=== PATIENT | female | born 1930 | race Caucasian/White ===

== ENCOUNTER 2017-05-11 20:10 | Inpatient (IN) | payer MEDICARE, OTHER ==
[~2017-05-11] VITALS: Ht 157.5 cm; Wt 58.7 kg
[2017-05-11] VITALS (9 sets, daily range): BP systolic 147–185; BP diastolic 67–85; PULSE 77–88; RESP 16; TEMP 97.9; O2SAT 94–100
[2017-05-11] MEDS ORDERED: IOHEXOL 350 MG/ML 10 ML VIAL (for RAD DIAG) IVCONTRAST ONE (20:11)
[2017-05-11] MEDS ORDERED: MISCELLANEOUS NURSING INFORMATION XX PRN (20:30)
[2017-05-11] MEDS ORDERED: ALTEPLASE DRIP IV ONE (20:30)
[2017-05-11] MEDS ORDERED: ALTEPLASE BOLUS 9 MG/9 ML SYR IV ONE (20:30)
[2017-05-11] MEDS ORDERED: SODIUM CHLORIDE 0.9% 50 ML BAG IVF ONE (20:30)
--- NOTE | 2017-05-11 20:37 | RADRPT ---
EXAM DATE/TIME: 05/11/2017 20:15 [facility] COMPARISON: No previous studies available for comparison. INDICATIONS : Altered mental status RADIATION DOSE: 56.68 CTDIvol (mGy) This report was called by [place] to dr. Mo at 2032 MEDICAL HISTORY : Non-responsive. SURGICAL HISTORY : Non-responsive. ENCOUNTER: Initial ACUITY: 1 day PAIN SCALE: Non-responsive LOCATION: cranial TECHNIQUE: Multiple contiguous axial images were obtained of the head. Using automated exposure control and adj ustment of the mA and/or kV according to patient size, radiation dose was kept as low as reasonably a chievable to obtain optimal diagnostic quality images. DICOM format image data is available electro nically for review and comparison. FINDINGS: CEREBRUM: A small focal hyperdensity is identified along the cortical surface of the left occipital lobe. Certa inly measures are otherwise unremarkable. There are no hypodense changes characteristic of an acute i nfarct. CSF spaces are appropriate appearance for age POSTERIOR FOSSA: The cerebellum and brainstem are intact. The 4th ventricle is midline. The cerebellopontine angle i s unremarkable. EXTRACRANIAL: The visualized portion of the orbits is intact. SKULL: The calvaria is intact. No evidence of skull fracture. CONCLUSION: 1. Possible small cortical hemorrhage along the left occipital lobe 2. No other evidence of acute infarct or hemorrhage. Adiel Chandler MD on May 11, 2017 at 20:29 Board Certified Radiologist. This report was verified electronically.
[2017-05-11 20:43] LABS: AUTOMATED NEUTROPHIL # 3.4 TH/MM3 (1.8-7.7); BASOPHIL % 0.5 % (0.0-2.0); EOSINOPHIL # 0.1 TH/MM3 (0-0.4); EOSINOPHIL % 1.6 % (0.0-4.0); HEMATOCRIT 39.9 % (35.0-46.0); HEMOGLOBIN 13.2 GM/DL (11.6-15.3); LYMPHOCYTE # 1.3 TH/MM3 (1.0-4.8); MEAN CELL VOLUME 95.5 FL (80.0-100.0); MEAN CORPUSCULAR HEMOGLOBIN 31.5 PG (27.0-34.0); MEAN PLATELET VOLUME 10.6 FL (7.0-11.0); MONO % 7.4 % (0.0-8.0); MONOCYTE # 0.4 TH/MM3 (0-0.9); NEUT % 65.5 % (16.0-70.0); PLATELET COUNT 203 TH/MM3 (150-450); RED BLOOD COUNT 4.18 MIL/MM3 (4.00-5.30); RED CELL DISTRIBUTION WIDTH 11.7 % (11.6-17.2); WHITE BLOOD COUNT 5.2 TH/MM3 (4.0-11.0)
[2017-05-11 20:51] LABS: CALCIUM 8.9 MG/DL (8.5-10.1)
[2017-05-11 20:52] LABS: BICARBONATE 27.5 MEQ/L (21.0-32.0)
[2017-05-11 20:54] LABS: PROTHROMBIN TIME - PATIENT 10.4 SEC (9.8-11.6)
[2017-05-11 20:55] LABS: CREATININE 1.1 MG/DL (0.50-1.00)
[2017-05-11 21:00] LABS: TROPONIN I 0.06 NG/ML (0.02-0.05)
[2017-05-11 21:21] LABS: BILIRUBIN, URINE NEG (NEG); BLOOD, URINE NEG (NEG); GLUCOSE,URINE NEG (NEG); KETONE, URINE NEG (NEG); NITRITE,URINE NEG (NEG); PH, URINE 5.5 (5.0-8.5); URINE LEUKOCYTE ESTERASE NEG (NEG)
[2017-05-11 21:22] LABS: URINE COLOR YELLOW (YELLW/STRAW)
[2017-05-11 21:24] LABS: RBC, URINE 0-2 /hpf (0-3); SQUAMOUS EPITHELIAL CELL URINE 0-5 /hpf (0-5); WBC, URINE 0-2 /hpf (0-5)
[2017-05-11] MEDS ORDERED: ASPIRIN 300 MG SUPP RECTAL ONE (21:45)
--- NOTE | 2017-05-11 21:48 | RADRPT ---
EXAM DATE/TIME: 05/11/2017 21:01 [facility] COMPARISON: No previous studies available for comparison. INDICATIONS : Stroke symptoms IV CONTRAST: 86 cc Omnipaque 350 (iohexol) IV ; Cumulative dose for multiple exams. RADIATION DOSE: CTDIvol (mGy) ; Reconstructed from previous dataset, no dose MEDICAL HISTORY : Non-responsive. SURGICAL HISTORY : Non-responsive. ENCOUNTER: Initial ACUITY: 1 day PAIN SCALE: Non-responsive LOCATION: cranial TECHNIQUE: Volumetric scanning was performed using a multi-row detector CT scanner. The data was post processed with a variety of visualization algorithms including full volume maximum intensity projection, multi -planar sliding thin slab reformation, curved planar reformation, and surface rendering techniques. Using automated exposure control and adjustment of the mA and/or kV according to patient size, radiat ion dose was kept as low as reasonably achievable to obtain optimal diagnostic quality images. DICO M format image data is available electronically for review and comparison. FINDINGS: There is excellent visualization of the major intracranial arteries out to the second-order branch ve ssels. The left internal carotid artery is occluded. The proximal left middle cerebral artery is occluded. Several M2 and M3 branches of the left reconstituted via collateral flow. Right cerebral circulation and vertebral basilar circulation are patent. CONCLUSION: 1. Occluded left internal carotid artery and proximal left middle cervical artery 2. 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 3. Intact right cerebral and vertebral basilar circulation. Adiel Chandler MD on May 11, 2017 at 21:39 Board Certified Radiologist. This report was verified electronically.
--- NOTE | 2017-05-11 22:16 | RADRPT ---
EXAM DATE/TIME: 05/11/2017 21:01 [facility] COMPARISON: No previous studies available for comparison. INDICATIONS : Stroke symptoms IV CONTRAST: 86 cc Omnipaque 350 (iohexol) IV ; Cumulative dose for multiple exams. RADIATION DOSE: 43.12 CTDIvol (mGy) ; Combined studies MEDICAL HISTORY : Non-responsive. SURGICAL HISTORY : Non-responsive. ENCOUNTER: Initial ACUITY: 1 day PAIN SCALE: Non-responsive LOCATION: cranial Elevated flow velocities and ICA/CCA ratios have been found to correlate with increased degrees of vessel stenosis, calculated as percentage of diameter relative to a normal segment of distal ICA/CCA. TECHNIQUE: Volumetric scanning was performed using a multirow detector CT scanner. The data was post processed with a variety of visualization algorithms including full-volume maximum intensity projection, multip lanar sliding thin-slab reformation, curved-planar reformation, and surface-rendering techniques. Us ing automated exposure control and adjustment of the mA and/or kV according to patient size, radiatio n dose was kept as low as reasonably achievable to obtain optimal diagnostic quality images. DICOM f ormat image data is available electronically for review and comparison. FINDINGS: AORTIC ARCH: There is a three-vessel origin of the great vessels from the aorta. No evidence of ostial narrowing. RIGHT CAROTID: The common carotid artery is intact. The carotid bulb has a normal configuration without ulceration o r narrowing. The internal carotid artery lumen is smooth without stenosis. The external carotid tiffanie ry is intact. LEFT CAROTID: The left common carotid artery becomes occluded just at its origin. There is complete occlusion of th e left internal carotid artery which extends intracranially. VERTEBRALS: The vertebral arteries have a symmetric diameter. No stenotic lesions are seen. CONCLUSION: 1. Occluded left common and internal carotid arteries. 2. Patent right carotid system without significant stenosis. 3. Patent vertebral arteries. Adiel Chandler MD on May 11, 2017 at 22:11 Board Certified Radiologist. This report was verified electronically.
--- NOTE | 2017-05-11 22:54 | PD ---
HPI Chief Complaint: Stroke Alert Time Seen by Provider: 20:16 Travel History International Travel<30 days: No Contact w/Intl Traveler<30days: No Traveled to known affect area: No History of Present Illness HPI This is an 86-year-old female who presents to the emergency department having been eating dinner with her family at 7:30 PM when she slumped over on the table and had onset of right sided weakness and difficulty speaking. The family immediately called EMS. With EMS the patient had a normal blood sugar. Patient is unable to provide any history. PFS Past Medical History Medical History: Denies Significant Hx Tetanus Vaccination: Unknown ?: Not Past Surgical History Surgical History: Unable to Obtain Social History Alcohol Use: No Tobacco Use: No Substance Use: No Allergies-Medications (Allergen,Severity, Reaction): Coded Allergies: No Known Drug Allergies (Verified Allergy, Unknown, 05/11/17) Reported Meds & Prescriptions Reported Meds & Active Scripts Active No Active Prescriptions or Reported Medications Review of Systems ROS Limitations: Speech Impaired Physical Exam Narrative GENERAL: Frail elderly female, protecting her airway SKIN: Focused skin assessment warm and dry. HEAD: Atraumatic. Normocephalic. EYES: Pupils equal and round. No injection or drainage. ENT: Moist mucous membranes NECK: Trachea midline. CARDIOVASCULAR: Regular rate and rhythm. No murmur appreciated. RESPIRATORY: Clear to auscultation. Breath sounds equal bilaterally. GASTROINTESTINAL: Abdomen soft, non-tender, nondistended. MUSCULOSKELETAL: No obvious deformities. NEUROLOGICAL: Does not follow commands, right sided facial droop, right upper and right lower extremity weakness on exam, completely aphasic. Data Data Last Documented VS Vital Signs Date Time Temp Pulse Resp B/P (MAP) Pulse Ox O2 Delivery O2 Flow Rate FiO2 05/11/17 20:43 94 21 05/11/17 20:15 16 Nasal Cannula 2.00 05/11/17 20:10 97.9 88 165/72 (103) Orders Orders Cath For Specimen (05/11/17 20:16) Neuro Checks Q2HX12,Q4H (05/11/17 20:16) Nursing Bedside Swallow Assess .ONCE (05/11/17 20:16) Activity Bed Rest (05/11/17 20:16) Diet Npo (05/12/17 Breakfast) Prothrombin Time / Inr (Pt) (05/11/17 20:16) Act Partial Throm Time (Ptt) (05/11/17 20:16) Complete Blood Count With Diff (05/11/17 20:16) Basic Metabolic Panel (Bmp) (05/11/17 20:16) Fibrinogen (05/11/17 20:16) Creatine Kinase (Cpk) (05/11/17 20:16) Troponin I (05/11/17 20:16) Ua Includes Microscopic (05/11/17 20:16) Drug Screen, Random Urine (05/11/17 20:16) Type And Screen (05/11/17 20:16) Ct Brain W/O Iv Contrast(Rout) (05/11/17 ) Electrocardiogram (05/11/17 ) Beta Hcg (Quant/Titer) (05/11/17 20:16) Consult Neurology (05/11/17 20:16) Blood Glucose (05/11/17 20:16) Ecg Monitoring (05/11/17 20:16) Iv Access Insert/Monitor (05/11/17 20:16) NPO (05/11/17 20:16) Oximetry (05/11/17 20:16) Oxygen Administration (05/11/17 20:16) Resp Oxygen Vladimir C Titrat 1-4 L (05/11/17 20:16) Alteplase Bolus (Activase Bolus) (05/11/17 20:30) Alteplase Drip (Activase Drip) (05/11/17 20:30) Sodium Chloride 0.9% Inj (Ns Inj) (05/11/17 20:30) Misc Nursing Information (05/11/17 20:30) Resp Oxygen Vladimir C Titrat 1-4 L (05/11/17 ) Cta Brain W Iv Contrast W 3d (05/11/17 ) Cta Neck W Iv Contrast W 3d (05/11/17 ) (Hub Use Only)Inp Phy Cons/Ref (05/11/17 21:09) Aspirin Supp (Aspirin Supp) (05/11/17 21:45) Admit Order (Ed Use Only) (05/11/17 21:53) Labs Laboratory Tests Test 05/11/17 20:30 05/11/17 20:50 White Blood Count 5.2 TH/MM3 Red Blood Count 4.18 MIL/MM3 Hemoglobin 13.2 GM/DL Hematocrit 39.9 % Mean Corpuscular Volume 95.5 FL Mean Corpuscular Hemoglobin 31.5 PG Mean Corpuscular Hemoglobin Concent 33.0 % Red Cell Distribution Width 11.7 % Platelet Count 203 TH/MM3 Mean Platelet Volume 10.6 FL Neutrophils (%) (Auto) 65.5 % Lymphocytes (%) (Auto) 25.0 % Monocytes (%) (Auto) 7.4 % Eosinophils (%) (Auto) 1.6 % Basophils (%) (Auto) 0.5 % Neutrophils # (Auto) 3.4 TH/MM3 Lymphocytes # (Auto) 1.3 TH/MM3 Monocytes # (Auto) 0.4 TH/MM3 Eosinophils # (Auto) 0.1 TH/MM3 Basophils # (Auto) 0.0 TH/MM3 CBC Comment DIFF FINAL Differential Comment Prothrombin Time 10.4 SEC Prothromb Time International Ratio 1.0 RATIO Activated Partial Thromboplast Time 22.8 SEC Fibrinogen 375 mg/dL Blood Urea Nitrogen 19 MG/DL Creatinine 1.10 MG/DL Random Glucose 90 MG/DL Calcium Level 8.9 MG/DL Sodium Level 143 MEQ/L Potassium Level 3.9 MEQ/L Chloride Level 108 MEQ/L Carbon Dioxide Level 27.5 MEQ/L Anion Gap 8 MEQ/L Estimat Glomerular Filtration Rate 47 ML/MIN Total Creatine Kinase 94 U/L Troponin I 0.06 NG/ML Human Chorionic Gonadotropin, Quant 3 MIU/ML Urine Color YELLOW Urine Turbidity CLEAR Urine pH 5.5 Urine Specific [place] 1.026 Urine Protein NEG mg/dL Urine Glucose (UA) NEG mg/dL Urine Ketones NEG mg/dL Urine Occult Blood NEG Urine Nitrite NEG Urine Bilirubin NEG Urine Leukocyte Esterase NEG Urine RBC 0-2 /hpf Urine WBC 0-2 /hpf Urine Squamous Epithelial Cells 0-5 /hpf Urine Bacteria NONE /hpf Microscopic Urinalysis Comment Urine Opiates Screen NEG Urine Barbiturates Screen NEG Urine Amphetamines Screen NEG Urine Benzodiazepines Screen NEG Urine Cocaine Screen NEG Urine Cannabinoids Screen NEG MDM Medical Screen Exam Complete: Yes Emergency Medical Condition: Yes Differential Diagnosis Afebrile, hypertensive No leukocytosis Troponin is 0.06 Last 24 hours Impressions Neck CTA 05/11/17 0000 Signed Impressions: Service Date/Time: Thursday, May 11, 2017 21:01 - CONCLUSION: 1. Occluded left common and internal carotid arteries. 2. Patent right carotid system without significant stenosis. 3. Patent vertebral arteries. Adiel Chandler MD Head CTA 05/11/17 Signed Impressions: Service Date/Time: Thursday, May 11, 2017 21:01 - CONCLUSION: 1. Occluded left internal carotid artery and proximal left middle cervical artery 2. 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 3. Intact right cerebral and vertebral basilar circulation. Adiel Chandler MD Head CT 05/11/17 Signed Impressions: Service Date/Time: Thursday, May 11, 2017 20:15 - CONCLUSION: 1. Possible small cortical hemorrhage along the left occipital lobe 2. No other evidence of acute infarct or hemorrhage. Adiel Chandler MD Narrative Course This is an 86-year-old female who presents to the emergency department having had onset of stroke symptoms at 7:30 PM this evening. A stroke alert was called upon her arrival in the emergency department. NIH stroke scale was 30. She was transported to CT where she was found to have a small possible cortical hemorrhage in the left occipital lobe. This was a contraindication to TPA. CTA was obtained to evaluate whether the patient would be a candidate for thrombectomy. CT demonstrated complete occlusion of the left internal carotid and proximal left MCA. Given the carotid occlusion patient was not a candidate for thrombectomy. Patient was seen by Dr. Oneill in the emergency department who recommended the patient be started on aspirin and CT imaging be repeated in the morning. Patient will be admitted for close monitoring. I spoke to Dr. Eugene the airplane engineer who requested the patient be transferred to the [facility] hospital for close monitoring. Critical Care Narrative Aggregate critical care time was 45 minutes. Time to perform other separately billable procedures was not included in the critical care time. My time did not include minutes spent treating any other patients simultaneously or on activities that did not directly contribute to the patient's treatment. The services I provided to this patient were to treat and/or prevent clinically significant deterioration that could result in: Disability, I provided critical care services requiring my management, as noted below: Chart data review, documentation time, medication orders and management, vital sign assessments/reviewing monitor data, ordering and reviewing lab tests, ordering and interpreting/reviewing x-rays and diagnostic studies, care of the patient and discussion of the patient with the admitting physicians. Stroke Alert NIHSS NIH Stroke Scale Result: 30 NIHSS Time Completed: 20:10 Thrombolytic Contraindications Contraindications: CT Intracranial Bleed Physician Communication Physician Communication Discussed with Dr. Oneill and Dr. Eugene Diagnosis Diagnosis: Primary Impression: Stroke Qualified Codes: I63.512 - Cerebral infarction due to unspecified occlusion or stenosis of left middle cerebral artery Admitting Physician Requests: Admit Scripts No Active Prescriptions or Reported Meds Charlene Mo MD May 11, 2017 22:54
--- NOTE | 2017-05-11 23:57 | HHI.HP ---
HPI Service Critical Care Medicine Primary Care Physician Unknown Admission Diagnosis stroke Diagnosis: Travel History International Travel<30 Days: No Contact w/Intl Traveler <30 Da: No Traveled to Known Affected Are: No History of Present Illness 86-year-old female with no significant past medical history presents after she was eating dinner with her family at 7:30 PM when she slumped over on the table and had onset of right sided weakness and difficulty speaking. The family immediately called EMS. With EMS the patient had a normal blood sugar but is unable to provide any further history. The CT of the head done in the emergency department showed possible left occipital cortical bleed and thus the patient was not a candidate for TPA administration. 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 Review of Systems ROS Unobtainable patient is nonverbal Past Family Social History Allergies: Coded Allergies: No Known Drug Allergies (Verified Allergy, Unknown, 05/11/17) Past Medical History None Past Surgical History Non- Reported Medications Reported Meds & Active Scripts Active No Active Prescriptions or Reported Medications Active Ordered Medications Current Medications Medications (Trade) Dose Ordered Sig/[place] Route PRN Reason Start Time Stop Time Status Last Admin Dose Admin Sodium Chloride (NS Flush) 2 ml UNSCH PRN IV FLUSH FLUSH AFTER USING IV ACCESS 05/12/17 01:15 Sodium Chloride (NS Flush) 2 ml BID IV FLUSH 05/12/17 09:00 UNV Albuterol/ Ipratropium (Duoneb Neb) 1 ampule Q2HR NEB PRN INH WHEEZING 05/12/17 01:15 UNV Miscellaneous Information 1 Q361D XX 05/12/17 01:15 UNV Chlorhexidine Gluconate (Chlorhexidine 2% Cloth) 3 pack Taper DAILY@04 TOP 05/12/17 04:00 05/08/18 03:59 UNV Family History Unobtainable Social History Alcohol Use: No Tobacco Use: No Substance Use: No Physical Exam Vital Signs Vital Signs Date Time Temp Pulse Resp B/P (MAP) Pulse Ox O2 Delivery O2 Flow Rate FiO2 05/11/17 22:35 79 175/85 (115) 05/11/17 21:45 82 185/78 (113) 05/11/17 21:15 78 16 166/82 (110) 05/11/17 21:00 77 147/83 (104) 05/11/17 20:43 94 21 05/11/17 20:40 78 158/74 (102) 05/11/17 20:20 87 16 164/85 (111) 96 Nasal Cannula 2.00 05/11/17 20:15 16 96 Nasal Cannula 2.00 05/11/17 20:10 97 Nasal Cannula 2.00 05/11/17 20:10 97.9 88 16 165/72 (103) 98 Physical Exam GENERAL: Frail elderly female, neglecting the right side SKIN: Focused skin assessment warm and dry. HEAD: Atraumatic. Normocephalic. EYES: Pupils equal and round. No injection or drainage. ENT: Moist mucous membranes NECK: Trachea midline. CARDIOVASCULAR: Regular rate and rhythm. No murmur appreciated. RESPIRATORY: Clear to auscultation. Breath sounds equal bilaterally. GASTROINTESTINAL: Abdomen soft, non-tender, nondistended. MUSCULOSKELETAL: No obvious deformities. NEUROLOGICAL: Does not follow commands, right sided facial droop, right upper and right lower extremity weakness on exam, completely aphasic. Laboratory Laboratory Tests Test 05/11/17 20:30 05/11/17 20:50 White Blood Count 5.2 Red Blood Count 4.18 Hemoglobin 13.2 Hematocrit 39.9 Mean Corpuscular Volume 95.5 Mean Corpuscular Hemoglobin 31.5 Mean Corpuscular Hemoglobin Concent 33.0 Red Cell Distribution Width 11.7 Platelet Count 203 Mean Platelet Volume 10.6 Neutrophils (%) (Auto) 65.5 Lymphocytes (%) (Auto) 25.0 Monocytes (%) (Auto) 7.4 Eosinophils (%) (Auto) 1.6 Basophils (%) (Auto) 0.5 Neutrophils # (Auto) 3.4 Lymphocytes # (Auto) 1.3 Monocytes # (Auto) 0.4 Eosinophils # (Auto) 0.1 Basophils # (Auto) 0.0 CBC Comment DIFF FINAL Differential Comment Prothrombin Time 10.4 Prothromb Time International Ratio 1.0 Activated Partial Thromboplast Time 22.8 Fibrinogen 375 Blood Urea Nitrogen 19 Creatinine 1.10 Random Glucose 90 Calcium Level 8.9 Sodium Level 143 Potassium Level 3.9 Chloride Level 108 Carbon Dioxide Level 27.5 Anion Gap 8 Estimat Glomerular Filtration Rate 47 Total Creatine Kinase 94 Troponin I 0.06 Human Chorionic Gonadotropin, Quant 3 Urine Color YELLOW Urine Turbidity CLEAR Urine pH 5.5 Urine Specific [place] 1.026 Urine Protein NEG Urine Glucose (UA) NEG Urine Ketones NEG Urine Occult Blood NEG Urine Nitrite NEG Urine Bilirubin NEG Urine Leukocyte Esterase NEG Urine RBC 0-2 Urine WBC 0-2 Urine Squamous Epithelial Cells 0-5 Urine Bacteria NONE Microscopic Urinalysis Comment Urine Opiates Screen NEG Urine Barbiturates Screen NEG Urine Amphetamines Screen NEG Urine Benzodiazepines Screen NEG Urine Cocaine Screen NEG Urine Cannabinoids Screen NEG Result Diagram: 05/11/17202905/11/172029 Septic Shock Reassessment Septic shock perfusion: reassessment completed Caprini VTE Risk Assessment Caprini VTE Risk Assessment: Mod/High Risk (score >= 2) VTE Pharm Contraindication: Hemorrhage Caprini Risk Assessment Model Point Value = 1 Point Value = 2 Point Value = 3 Point Value = 5 Age 41-60 Minor surgery BMI > 25 kg/m2 Swollen legs Varicose veins or History of unexplained or recurrent spontaneous Oral contraceptives or hormone replacement Sepsis (< 1 month) Serious lung disease, including pneumonia (< 1 month) Abnormal pulmonary function Acute myocardial infarction Congestive heart failure (< 1 month) History of inflammatory bowel disease Medical patient at bed rest Age 61-74 Arthroscopic surgery Major open surgery (> 45 min) Laparoscopic surgery (> 45 min) Malignancy Confined to bed (> 72 hours) Immobilizing plaster cast Central venous access Age >= 75 History of VTE Family history of VTE Factor V Leiden Prothrombin [id number] Lupus anticoagulant Anticardiolipin antibodies Elevated serum homocysteine Heparin-induced thrombocytopenia Other congenital or acquired thrombophilia Stroke (< 1 month) Elective arthroplasty Hip, pelvis, or leg fracture Acute spinal cord injury (< 1 month) Prophylaxis Regimen Total Risk Factor Score Risk Level Prophylaxis Regimen 0-1 Low Early ambulation 2 Moderate Order ONE of the following: *Sequential Compression Device (SCD) *Heparin 5000 units SQ BID 3-4 Higher Order ONE of the following medications: *Heparin 5000 units SQ TID *Enoxaparin/Lovenox 40 mg SQ daily (WT < 150 kg, CrCl > 30 mL/min) *Enoxaparin/Lovenox 30 mg SQ daily (WT < 150 kg, CrCl > 10-29 mL/min) *Enoxaparin/Lovenox 30 mg SQ BID (WT < 150 kg, CrCl > 30 mL/min) AND/OR *Sequential Compression Device (SCD) 5 or more Highest Order ONE of the following medications: *Heparin 5000 units SQ TID (Preferred with Epidurals) *Enoxaparin/Lovenox 40 mg SQ daily (WT < 150 kg, CrCl > 30 mL/min) *Enoxaparin/Lovenox 30 mg SQ daily (WT < 150 kg, CrCl > 10-29 mL/min) *Enoxaparin/Lovenox 30 mg SQ BID (WT < 150 kg, CrCl > 30 mL/min) AND *Sequential Compression Device (SCD) Assessment and Plan Assessment and Plan Acute CVA - Complete occlusion of internal carotid and common carotid on the left - No intervention available - Aspirin DC daily - Atorvastatin - Neurology consult - Palliative care consultation - Physical therapy eval and treat as tolerated - 2-D echo Hypertension - Continue permissive hypertension with systolic blood pressure goal less than 220 - We'll start when necessary meds if needed Acute kidney injury - Gentle IV hydration - Monitor electrolytes and replace per ICU protocol DVT GI prophylaxis - Teds SCDs - Hold pharmacological DVT prophylaxis due to questionable ICH - IV Pepcid Critical Care: The total critical care time was 35 minutes. Time to perform other separately billable procedures was not included in the critical care time. August Eugene MD May 11, 2017 11:57 pm
[2017-05-12] VITALS (17 sets, daily range): BP systolic 133–154; BP diastolic 61–71; PULSE 43–58; RESP 18–27; TEMP 97.5–102.4; O2SAT 96–100
[2017-05-12] MEDS: SODIUM CHLOR 0.9% 1000 ML INJ 1,000 ML IV SCH ×2 (01:13→13:08)
[2017-05-12] MEDS ORDERED: ACETAMINOPHEN 325 MG TAB PO PRN (01:15)
[2017-05-12] MEDS ORDERED: SENNOSIDES 8.6 MG TAB PO PRN (01:15)
[2017-05-12] MEDS ORDERED: SODIUM CHLORIDE 0.9% FLUSH 10 ML FLUSH IV FLUSH PRN (01:15)
[2017-05-12] MEDS ORDERED: MAGNESIUM HYDROXIDE SUSP 30 ML CUP PO PRN (01:15)
[2017-05-12] MEDS ORDERED: MORPHINE SULFATE 2 MG/ML INJ IV PUSH PRN (01:15)
[2017-05-12] MEDS ORDERED: LACTULOSE SYRUP 20 GM/30 ML CUP PO PRN (01:15)
[2017-05-12] MEDS ORDERED: RESP: ALBUTEROL 2.5 MG/IPRATROPIUM 0.5 MG NEB (PRN) INH (01:15)
[2017-05-12] MEDS ORDERED: ONDANSETRON HCL 4 MG/2 ML VIAL IV PUSH PRN (01:15)
[2017-05-12] MEDS ORDERED: BISACODYL 10 MG SUPP RECTAL PRN (01:15)
[2017-05-12] MEDS ORDERED: CHLORHEXIDINE GLUCONATE 2 % 1 PACK (2 CLOTHS) TOP PRN (01:15)
[2017-05-12] MEDS ORDERED: MIDAZOLAM HCL 2 MG/2 ML VIAL IV PUSH PRN (01:15)
[2017-05-12] MEDS ORDERED: MISCELLANEOUS NURSING INFORMATION XX SCH (01:15)
[2017-05-12] MEDS ORDERED: POTASSIUM CHLOR 40 MEQ PREMIX 100 ML IV PRN ×2 (01:30)
[2017-05-12] MEDS ORDERED: POTASSIUM PHOSPHATE MONOBASIC 500 MG TAB PO/TUBE PRN (01:30)
[2017-05-12] MEDS ORDERED: SODIUM PHOSPHATE INJ 30 MMOL in SODIUM CHLOR 0.9% 250 ML INJ 240 ML IV PRN (01:30)
[2017-05-12] MEDS ORDERED: MAGNESIUM SULFATE INJ 4 GM in SODIUM CHLORIDE 0.9% INJ 92 ML IV PRN (01:30)
[2017-05-12] MEDS ORDERED: MAGNESIUM SULFATE INJ 2 GM in SODIUM CHLORIDE 0.9% INJ 96 ML IV PRN (01:30)
[2017-05-12] MEDS ORDERED: MAGNESIUM OXIDE 400 MG TAB PO PRN (01:30)
[2017-05-12] MEDS ORDERED: POTASSIUM PHOSPHATE INJ 30 MMOL in SODIUM CHLOR 0.9% 250 ML INJ 250 ML IV PRN (01:30)
[2017-05-12] MEDS ORDERED: POTASSIUM CHLOR 20 MEQ PREMIX 100 ML IV PRN ×2 (01:30)
[2017-05-12] MEDS ORDERED: POTASSIUM PHOSPHATE MONOBASIC 500 MG TAB PO PRN (01:30)
[2017-05-12] MEDS ORDERED: POTASSIUM CHLORIDE 25 MEQ EFFERVESCENT TAB PO PRN (01:30)
[2017-05-12] MEDS: CHLORHEXIDINE GLUCONATE 2 % 1 PACK (2 CLOTHS) TOP SCH (01:35)
--- NOTE | 2017-05-12 05:52 | MB ---
cc: LENNY STEVENS DATE OF CONSULTATION: 05/12/2017 REASON FOR CONSULTATION: Stroke alert HISTORY OF PRESENT ILLNESS Ms. Collazo is an 86-year-old female who developed the acute onset of severe weakness of the right side as well as an expressive aphasia 05/11/2017, around 07:30 p.m. She presented to the ER as a stroke alert, has had really no change in her symptoms. The patient has no prior history of stroke or TIA symptoms. Her daughter relates that she is not on any type of anticoagulant medicine. She does not take aspirin or any other anti-platelets. NEUROLOGICAL EXAMINATION: Blood pressure 187/85, respirations 16. She is alert. She has expressive aphasia, does not get any words out. 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 Extraocular movements intact. On motor exam she has a dense right hemiplegia rated 0/5 for the right arm and right leg. She has normal strength on the left. Reflex symmetric. CT of the brain shows area of increased signal in the left occipital cortex, suggesting probable small cortical hemorrhage in that area. EKG: Sinus rhythm. LABORATORY DATA White count 5200, hemoglobin 13.2, hematocrit 39%, platelets 203,000, PT 10.4, INR 1. APTT 20.8. Sodium 143, potassium 3.9, chloride 108, CO2 27.5, the BUN is 19, creatinine 1.1, GFR is 47, glucose 90, calcium 8.9. 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 She is not a TPA candidate because of the small cortical hemorrhage seen on CT scan. RECOMMENDATIONS Would proceed with CT angiogram of the brain as well as the neck to evaluate for any potential large vessel occlusion for possible endovascular therapy. MD PINEDA Doyle/DANIA /9:06 PM /4:21 AM
[2017-05-12] MEDS: DOCUSATE SODIUM 50 MG/SENNA 8.6 MG TAB PO SCH ×2 (07:31→21:00)
[2017-05-12] MEDS: SODIUM CHLORIDE 0.9% FLUSH 10 ML FLUSH IV FLUSH SCH ×2 (07:31→21:00)
[2017-05-12] MEDS: ARTIFICIAL TEARS OPTH SOLN 15 ML BTL EACH EYE SCH ×3 (07:32→18:00)
[2017-05-12] MEDS: ASPIRIN 600 MG SUPP RECTAL SCH (09:00)
[2017-05-12] MEDS ORDERED: FAMOTIDINE 20 MG/2 ML VIAL IV PUSH SCH (09:00)
--- NOTE | 2017-05-12 09:27 | HHI.PR ---
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 Plan continue asa MRI brain ECHO Diagnosis/Plan: Subjective Subjective Comments No acute events reported continues with aphasia and right sided weakness Active Medications Current Medications Medications (Trade) Dose Ordered Sig/Yeimy Route Start Time Stop Time Status Last Admin Sodium Chloride 1,000 ml @ 84 mls/hr [id number] IV 05/12/17 01:13 05/12/17 01:13 (NS Flush) 2 ml UNSCH PRN IV FLUSH 05/12/17 01:15 (NS Flush) 2 ml BID IV FLUSH 05/12/17 09:00 05/12/17 07:31 (Tylenol) 650 mg Q6H PRN PO 05/12/17 01:15 (Morphine Inj) 2 mg Q2H PRN IV PUSH 05/12/17 01:15 (Versed Inj) 2 mg Q1H PRN IV PUSH 05/12/17 01:15 (Tears Naturale Opth Soln) 1 drop TID EACH EYE 05/12/17 09:00 05/12/17 07:32 (Zofran Inj) 4 mg Q6H PRN IV PUSH 05/12/17 01:15 (Duoneb Neb) 1 ampule Q2HR NEB PRN INH 05/12/17 01:15 Miscellaneous Information 1 [id number] XX 05/12/17 01:15 05/12/17 01:34 (Chlorhexidine 2% Cloth) 3 pack Taper DAILY@04 TOP 05/12/17 04:00 05/08/18 03:59 (Chlorhexidine 2% Cloth) 3 pack UNSCH PRN TOP 05/12/17 01:15 (Chanelle-Colace) 1 tab BID PO 05/12/17 09:00 (Milk Of Magnesia Liq) 30 ml Q12H PRN PO 05/12/17 01:15 (Senokot) 17.2 mg Q12H PRN PO 05/12/17 01:15 (Dulcolax Supp) 10 mg DAILY PRN RECTAL 05/12/17 01:15 (Lactulose Liq) 30 ml DAILY PRN PO 05/12/17 01:15 Potassium Chloride 100 ml @ 50 mls/hr Q2H PRN IV 05/12/17 01:30 Potassium Chloride 100 ml @ 50 mls/hr Q2H PRN IV 05/12/17 01:30 (K-Lyte Cl Eff) 50 meq UNSCH PRN PO 05/12/17 01:30 Potassium Chloride 100 ml @ 25 mls/hr UNSCH PRN IV 05/12/17 01:30 Potassium Chloride 100 ml @ 50 mls/hr Q2H PRN IV 05/12/17 01:30 Magnesium Sulfate 4 gm/Sodium Chloride 100 ml @ 50 mls/hr UNSCH PRN IV 05/12/17 01:30 (Mag-Ox) 800 mg UNSCH PRN PO 05/12/17 01:30 Magnesium Sulfate 2 gm/Sodium Chloride 100 ml @ 50 mls/hr UNSCH PRN IV 05/12/17 01:30 (K-Phos) 2,000 mg Q4H PRN PO 05/12/17 01:30 Sodium Phosphate 30 mmol/Sodium Chloride 250 ml @ 42 mls/hr UNSCH PRN IV 05/12/17 01:30 (K-Phos) 2,000 mg UNSCH PRN PO/TUBE 05/12/17 01:30 Potassium Phosphate 30 mmol/ Sodium Chloride 260 ml @ 42 mls/hr UNSCH PRN IV 05/12/17 01:30 (Aspirin Supp) 600 mg DAILY RECTAL 05/12/17 09:00 (Lipitor) 40 mg HS PO 05/12/17 21:00 (Pepcid Inj) 10 mg Q12HR IV PUSH 05/12/17 09:00 Allergies Allergies Coded Allergies No Known Drug Allergies (Verified Allergy, Unknown, 05/11/17) Exam I&O / VS Vital Signs Date Time Temp Pulse Resp B/P (MAP) Pulse Ox O2 Delivery O2 Flow Rate FiO2 05/12/17 08:00 97.5 49 20 133/61 (85) 96 05/12/17 08:00 48 05/12/17 07:00 56 05/12/17 07:00 99 Room Air 05/12/17 06:00 49 05/12/17 04:00 48 05/12/17 04:00 98.6 48 27 144/68 (93) 98 05/12/17 03:45 96 21 05/12/17 02:00 58 05/12/17 00:05 05/12/17 00:00 53 05/11/17 23:30 78 16 148/67 (94) 100 Room Air 05/11/17 22:35 79 175/85 (115) 05/11/17 21:45 82 185/78 (113) 05/11/17 21:15 78 16 166/82 (110) 05/11/17 21:00 77 147/83 (104) 05/11/17 20:43 94 21 05/11/17 20:40 78 158/74 (102) 05/11/17 20:20 87 16 164/85 (111) 96 Nasal Cannula 2.00 05/11/17 20:15 16 96 Nasal Cannula 2.00 05/11/17 20:10 97 Nasal Cannula 2.00 05/11/17 20:10 97.9 88 16 165/72 (103) 98 Exam Comments very lethargic, arousable with effort. not following commands. NO speech CN--pupils left 2 mm right 1 1/2 mm both reactive. MOTOR--moves left upper and lower extremity to stimuli, postures LUE with decerebrate posturing. No withdrawal RLE Objective Radiology Results CTA---left carotid complete occlusion and left MCA occlusion Micro and Labs Laboratory Tests Test 05/11/17 20:30 05/11/17 20:50 05/12/17 00:40 05/12/17 05:17 White Blood Count 5.2 Red Blood Count 4.18 Hemoglobin 13.2 Hematocrit 39.9 Mean Corpuscular Volume 95.5 Mean Corpuscular Hemoglobin 31.5 Mean Corpuscular Hemoglobin Concent 33.0 Red Cell Distribution Width 11.7 Platelet Count 203 Mean Platelet Volume 10.6 Neutrophils (%) (Auto) 65.5 Lymphocytes (%) (Auto) 25.0 Monocytes (%) (Auto) 7.4 Eosinophils (%) (Auto) 1.6 Basophils (%) (Auto) 0.5 Neutrophils # (Auto) 3.4 Lymphocytes # (Auto) 1.3 Monocytes # (Auto) 0.4 Eosinophils # (Auto) 0.1 Basophils # (Auto) 0.0 CBC Comment DIFF FINAL Differential Comment Prothrombin Time 10.4 Prothromb Time International Ratio 1.0 Activated Partial Thromboplast Time 22.8 Fibrinogen 375 Blood Urea Nitrogen 19 Creatinine 1.10 Random Glucose 90 Calcium Level 8.9 Sodium Level 143 Potassium Level 3.9 Chloride Level 108 Carbon Dioxide Level 27.5 Anion Gap 8 Estimat Glomerular Filtration Rate 47 Total Creatine Kinase 94 Troponin I 0.06 Human Chorionic Gonadotropin, Quant 3 Urine Color YELLOW Urine Turbidity CLEAR Urine pH 5.5 Urine Specific [place] 1.026 Urine Protein NEG Urine Glucose (UA) NEG Urine Ketones NEG Urine Occult Blood NEG Urine Nitrite NEG Urine Bilirubin NEG Urine Leukocyte Esterase NEG Urine RBC 0-2 Urine WBC 0-2 Urine Squamous Epithelial Cells 0-5 Urine Bacteria NONE Microscopic Urinalysis Comment Urine Opiates Screen NEG Urine Barbiturates Screen NEG Urine Amphetamines Screen NEG Urine Benzodiazepines Screen NEG Urine Cocaine Screen NEG Urine Cannabinoids Screen NEG Nasal Screen MRSA (PCR) MRSA NOT DETECTED Phosphorus Level 3.0 Kirby Oneill MD PhD May 12, 2017 09:27
[2017-05-12] MEDS: FAMOTIDINE 20 MG/2 ML VIAL IV PUSH SCH ×2 (09:54→21:00)
[2017-05-12] MEDS ORDERED: GADODIAMIDE PF 287 MG/ML 10 ML VIAL (for RAD MRI) IVCONTRAST ONE (11:54)
--- NOTE | 2017-05-12 12:51 | EKG ---
Date Performed: 05/11/2017 Time Performed: 20:46:12 PTAGE: 86 years EKG: Sinus rhythm Nonspecific T-wave changes anteriorly NO PREVIOUS TRACING DOCTOR: Pepe Power Interpretating Date/Time 05/12/2017 12:50:15
--- NOTE | 2017-05-12 12:59 | RADRPT ---
EXAM DATE/TIME: 05/12/2017 11:37 [facility] COMPARISON: CTA BRAIN W 3D RECON, May 11, 2017, 21:01. CT BRAIN W/O CONTRAST, May 11, 2017, 20:15. INDICATIONS : CVA. Right side weakness. CONTRAST: 10 cc Omniscan (gadodiamide) IV MEDICAL HISTORY : None. SURGICAL HISTORY : None. ENCOUNTER: Initial ACUITY: 1 day PAIN SCORE: 0/10 LOCATION: cranial TECHNIQUE: Multiplanar, multisequence MRI of the brain was performed both prior to and following the administrat ion of paramagnetic contrast. FINDINGS: Extensive restricted diffusion is noted throughout the left frontal parietal lobe and left basal gang kevon consistent with acute infarct. 4 mm of subfalcine herniation to the right are noted. Flow void is not identified within the left internal carotid artery indicating thrombosis. No acute hemorrhage is noted. The ventricles, sulci and cisterns are otherwise unremarkable. CONCLUSION: Extensive restricted diffusion is noted throughout the left frontal parietal lobe and left basal gang kevon consistent with acute infarct. 4 mm of subfalcine herniation to the right are noted. Flow void is not identified within the left internal carotid artery indicating thrombosis. Clint Snider MD on May 12, 2017 at 12:51 Board Certified Radiologist. This report was verified electronically.
[2017-05-12] MEDS: ATORVASTATIN 40 MG TAB PO SCH (21:00)
[2017-05-12] MEDS ORDERED: ACETAMINOPHEN 1000 MG/100 ML 100 ML IV PRN ×2 (21:15→21:30)
[2017-05-13] VITALS (14 sets, daily range): BP systolic 151–196; BP diastolic 70–81; PULSE 37–71; RESP 14–21; TEMP 98–99; O2SAT 99–100
[2017-05-13] MEDS: SODIUM CHLOR 0.9% 1000 ML INJ 1,000 ML IV SCH ×3 (02:07→20:37)
[2017-05-13 03:26] LABS: AUTOMATED NEUTROPHIL # 5.2 TH/MM3 (1.8-7.7); BASOPHIL % 0.4 % (0.0-2.0); EOSINOPHIL % 0.5 % (0.0-4.0); HEMATOCRIT 35.5 % (35.0-46.0); HEMOGLOBIN 12.4 GM/DL (11.6-15.3); LYMPH % 17.7 % (9.0-44.0); LYMPHOCYTE # 1.3 TH/MM3 (1.0-4.8); MEAN CELL VOLUME 97.3 FL (80.0-100.0); MEAN CORPUSCULAR HGB CONC 34.9 % (32.0-36.0); MEAN PLATELET VOLUME 10.9 FL (7.0-11.0); MONO % 9.9 % (0.0-8.0); MONOCYTE # 0.7 TH/MM3 (0-0.9); NEUT % 71.5 % (16.0-70.0); PLATELET COUNT 160 TH/MM3 (150-450); RED BLOOD COUNT 3.65 MIL/MM3 (4.00-5.30); RED CELL DISTRIBUTION WIDTH 12.3 % (11.6-17.2); WHITE BLOOD COUNT 7.3 TH/MM3 (4.0-11.0)
[2017-05-13 03:37] LABS: INTERNATIONAL NORMALIZED RATIO 1.1 RATIO; PROTHROMBIN TIME - PATIENT 10.7 SEC (9.8-11.6)
[2017-05-13 03:43] LABS: ALBUMIN 2.7 GM/DL (3.4-5.0); ALT (GPT) 21 U/L (10-53); AST (GOT) 20 U/L (15-37); BICARBONATE 21.8 MEQ/L (21.0-32.0); BLOOD UREA NITROGEN 16 MG/DL (7-18); CALCIUM 8.4 MG/DL (8.5-10.1); CHLORIDE 114 MEQ/L (98-107); GLOMERULAR FILTRATION RATE 59 ML/MIN (>89); GLUCOSE,RANDOM 85 MG/DL (74-106); MAGNESIUM 2.1 MG/DL (1.5-2.5); PHOSPHORUS 2.5 MG/DL (2.5-4.9); SODIUM (NA) 144 MEQ/L (136-145)
[2017-05-13 03:45] LABS: ALKALINE PHOSPHATASE 108 U/L (45-117); TOTAL BILIRUBIN ADULT 0.5 MG/DL (0.2-1.0)
[2017-05-13] MEDS: CHLORHEXIDINE GLUCONATE 2 % 1 PACK (2 CLOTHS) TOP SCH (04:00)
[2017-05-13] MEDS: SODIUM CHLORIDE 0.9% FLUSH 10 ML FLUSH IV FLUSH SCH ×2 (08:18→20:37)
[2017-05-13] MEDS: DOCUSATE SODIUM 50 MG/SENNA 8.6 MG TAB PO SCH ×2 (08:18→20:26)
[2017-05-13] MEDS: FAMOTIDINE 20 MG/2 ML VIAL IV PUSH SCH ×2 (09:59→20:37)
[2017-05-13] MEDS: ASPIRIN 600 MG SUPP RECTAL SCH (09:59)
[2017-05-13] MEDS: ARTIFICIAL TEARS OPTH SOLN 15 ML BTL EACH EYE SCH ×3 (09:59→18:01)
--- NOTE | 2017-05-13 10:21 | PD.CONS ---
Consult Service Palliative Care . Consult Requested By Dr. Eugene . Primary Care Physician Unknown . Reason for Consultation a. To assist with evaluation and management of symptoms including: Encephalopathy, weakness b. To assist medical decision maker(s) with: better understanding of current medical conditions; weighing benefits/burdens of medical treatment options; making medical treatment decisions. HPI History of Present Illness Ms. Collazo is an 86-year-old female who presented to [facility] ED on 2017 after slumping over on the table while having dinner with her family at 1930 with associated right-sided weakness and difficulty speaking. The family immediately called EMS. Patient's blood glucose was normal. NIH stroke scale of 30. A stroke alert was called upon arrival to the ED, and the patient was immediately transported to CT which showed probable small cortical hemorrhage along the left occipital lobe which is a contraindication for TPA. Additional diagnostic data: * Vital signs: Pulse 88, respirations 16, BP 165/72, oxygen saturation 97% on 2L via nasal cannula and oral temperature 97.9. * WBC: 5.2, hemoglobin 13.2, hematocrit 39.9, platelets 203, neutrophils 65.5% * Sodium: 143, potassium 3.9, chloride 108, carbon dioxide 27.5, glucose 90, calcium 8.9 * BUN: 19, creatinine 1.10, GFR 47 * Total creatine kinase: 94 * Troponin: 0.06 * PT: 10.4, INR 1.0, APTT 22.8, fibrinogen 75 * Urinalysis WNL Patient was admitted to critical care services and transferred to the main campus. Dr. Oneill, neurology, evaluated the patient in the ED. Per family, the patient has no prior history of stroke or TIA. The patient is not on any type of anticoagulant; she does not take aspirin or any other antiplatelets. On exam the patient had right-sided hemiplegia in both upper and lower extremities. 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 An MRI of the brain the following day 05/12/18 showed extensive restricted diffusion throughout the left frontal parietal lobe and left basal ganglia consistent with acute infarct. 4 mm of subfalcine herniation to the right was noted. Flow void was not identified within the left internal carotid artery indicating thrombosis. Patient remains lethargic, difficult to arouse, nonverbal. Moves left upper and lower extremity to stimuli, left upper extremity with decerebrate posturing. Does not withdraw right lower extremity. Patient was unable to pass a swallow evaluation with speech therapy; physical therapy was also consulted but evaluation is limited secondary to lethargy. Palliative Care was consulted to assist with symptom management and to discuss with the family the benefits and burdens of her current illnesses and the options regarding future care. . Function/Cognitive Trajectory Per daughter, she has been ambulating with a cane off and on for the past 3 months.Daughter, Bea, had had noticed recent short-term memory loss and ability to care for herself to a lesser extent. She is a snowbird, currently living alone in [place] in a one-story home. Ms. Collazo has had no known recent falls. . Review of Systems ROS Limitations: Altered Mental Status, Speech Impaired Musculoskeletal: COMPLAINS OF: Decreased range of motion Neurologic: COMPLAINS OF: Localized weakness (right-sided hemiparesis), Speech Problems Psychiatric: COMPLAINS OF: Confusion Past Family Social History Coded Allergies: No Known Drug Allergies (Verified Allergy, Unknown, 05/11/17) Past Medical History No known medical history per daughter . Past Surgical History Cataract surgery . Reported Medications No Active Prescriptions or Reported Medications . Current Medications Medications (Trade) Dose Ordered Sig/Yeimy Route Start Time Stop Time Status Last Admin Sodium Chloride 1,000 ml @ 84 mls/hr [id number] IV 05/12/17 01:13 05/13/17 02:07 (NS Flush) 2 ml UNSCH PRN IV FLUSH 05/12/17 01:15 (NS Flush) 2 ml BID IV FLUSH 05/12/17 09:00 05/12/17 07:31 (Tylenol) 650 mg Q6H PRN PO 05/12/17 01:15 (Morphine Inj) 2 mg Q2H PRN IV PUSH 05/12/17 01:15 (Versed Inj) 2 mg Q1H PRN IV PUSH 05/12/17 01:15 (Tears Naturale Opth Soln) 1 drop TID EACH EYE 05/12/17 09:00 05/12/17 18:00 (Zofran Inj) 4 mg Q6H PRN IV PUSH 05/12/17 01:15 (Duoneb Neb) 1 ampule Q2HR NEB PRN INH 05/12/17 01:15 Miscellaneous Information 1 Q361D XX 05/12/17 01:15 05/12/17 01:34 (Chlorhexidine 2% Cloth) 3 pack Taper DAILY@04 TOP 05/12/17 04:00 05/08/18 03:59 (Chlorhexidine 2% Cloth) 3 pack UNSCH PRN TOP 05/12/17 01:15 (Chanelle-Colace) 1 tab BID PO 05/12/17 09:00 (Milk Of Magnesia Liq) 30 ml Q12H PRN PO 05/12/17 01:15 (Senokot) 17.2 mg Q12H PRN PO 05/12/17 01:15 (Dulcolax Supp) 10 mg DAILY PRN RECTAL 05/12/17 01:15 (Lactulose Liq) 30 ml DAILY PRN PO 05/12/17 01:15 Potassium Chloride 100 ml @ 50 mls/hr Q2H PRN IV 05/12/17 01:30 Potassium Chloride 100 ml @ 50 mls/hr Q2H PRN IV 05/12/17 01:30 (K-Lyte Cl Eff) 50 meq UNSCH PRN PO 05/12/17 01:30 Potassium Chloride 100 ml @ 25 mls/hr UNSCH PRN IV 05/12/17 01:30 Potassium Chloride 100 ml @ 50 mls/hr Q2H PRN IV 05/12/17 01:30 Magnesium Sulfate 4 gm/Sodium Chloride 100 ml @ 50 mls/hr UNSCH PRN IV 05/12/17 01:30 (Mag-Ox) 800 mg UNSCH PRN PO 05/12/17 01:30 Magnesium Sulfate 2 gm/Sodium Chloride 100 ml @ 50 mls/hr UNSCH PRN IV 05/12/17 01:30 (K-Phos) 2,000 mg Q4H PRN PO 05/12/17 01:30 Sodium Phosphate 30 mmol/Sodium Chloride 250 ml @ 42 mls/hr UNSCH PRN IV 05/12/17 01:30 (K-Phos) 2,000 mg UNSCH PRN PO/TUBE 05/12/17 01:30 Potassium Phosphate 30 mmol/ Sodium Chloride 260 ml @ 42 mls/hr UNSCH PRN IV 05/12/17 01:30 (Aspirin Supp) 600 mg DAILY RECTAL 05/12/17 09:00 05/12/17 09:00 (Lipitor) 40 mg HS PO 05/12/17 21:00 (Pepcid Inj) 10 mg Q12HR IV PUSH 05/12/17 09:00 05/12/17 09:54 Acetaminophen 100 ml @ 400 mls/hr Q6H PRN IV 05/12/17 21:15 05/12/17 21:19 Acetaminophen 100 ml @ 400 mls/hr Q6H PRN IV 05/12/17 21:30 . Family History Pending conversation with patient's family . Substance Use Tobacco: Remote smoking, quit in her 20s Alcohol: Patient enjoys 1 to 2 glasses of wine daily Prescription med abuse: None known Illicits: None known . Psychosocial History Patient was born in [place]. She had 2 sisters and one brother; one sister is still living. The patient attended college where she met her . 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 Her of 60 + years approximately 4 years ago. Together she and her had 3 children (2 daughters and 1 son). One daughter from complications related to a hospitalization/MRSA infection. Her son was killed and a MCA. Bea is her only living child; she lives in [place]. The patient is a snowbird. She spends most of the year living independently in her home in [place] and spends a few months of the year living independently in her [facility]. . . Spiritual/Cultural Factors Synagogue heidi Health Care Surrogate(s): Per [place] statutes, in the absence of written advanced directives healthcare proxy decision making would fall to the patient's only living child. Bea Castaneda, states the patient completed some written advanced directives after her 4 years ago. She will attempt to have a family member go to her house and fax them to the palliative care team . Documented care wishes: Bea Castaneda, states the patient completed some written advanced directives after her 4 years ago. She will attempt to have a family member go to her house and fax them to the palliative care team. . Today's verbally stated goals: Ms. Collazo is nonverbal status post CVA, unable to verbalize her medical treatment goals. . Family/friends goals: Bea Castaneda, states she may have already done more than her mother would have wanted. She does not feel her mother would want artificial nutrition or ongoing aggressive interventions if placement in an SNF and dependence on others is likely. She states is her mother does not improve, she would consider transitioning to comfort focused care at that time. . Ethical and Legal Issues No known ethical legal issues at this time. . Physical Exam Vital Signs Date Time Temp Pulse Resp B/P (MAP) Pulse Ox O2 Delivery O2 Flow Rate FiO2 05/13/17 08:15 100 05/13/17 06:00 46 05/13/17 04:00 98.6 44 18 151/70 (97) 100 05/13/17 04:00 44 05/13/17 02:00 52 05/13/17 00:00 98.4 44 14 167/77 (107) 99 05/13/17 00:00 44 05/12/17 22:00 46 05/12/17 21:25 100 21 05/12/17 20:00 102.4 57 18 140/70 (93) 99 05/12/17 20:00 57 05/12/17 19:00 99 Room Air 05/12/17 18:00 48 05/12/17 16:22 98.1 51 19 154/71 (98) 100 05/12/17 16:00 52 05/12/17 14:00 51 05/12/17 12:00 43 05/12/17 12:00 98.0 43 18 143/65 (91) 96 05/12/17 11:50 96 21 05/12/17 10:00 46 . Exam CONSTITUTIONAL/GENERAL: This is a pale elderly female patient in no acute distress TUBES/LINES/DRAINS: PIV 2 SKIN: No wounds seen anteriorly. Skin temperature appropriate. Not diaphoretic. HEAD: Atraumatic. Normocephalic. EYES: upils equal and round about 2 mm bilaterally and reactive. No injection or drainage. No scleral icterus ENT: Nose without bleeding or purulent drainage. Mucous membranes moist and pink NECK: Trachea midline. CARDIOVASCULAR: Bradycardic .. No JVD. RESPIRATORY/CHEST: Symmetric, unlabored respirations. Slightly tachypneic. Breath sounds equal bilaterally. GASTROINTESTINAL: Abdomen soft, non-tender, nondistended. No guarding. Bowel sounds present. GENITOURINARY: Without palpable bladder distension. MUSCULOSKELETAL: Extremities without clubbing, cyanosis, or edema. Moderately up to knee LYMPHATICS: No palpable cervical or supraclavicular adenopathy. NEUROLOGICAL: Does not follow commands, right sided facial droop, right upper and right lower extremity/assisting examination. Aphasic. Withdraws to left low greater than left upper extremity. PSYCHIATRIC: Unable to assess secondary to clinical condition . Diagnostic Tests Laboratory Laboratory Tests Test 05/11/17 20:30 05/11/17 20:50 05/12/17 00:40 05/12/17 05:17 White Blood Count 5.2 TH/MM3 (4.0-11.0) Red Blood Count 4.18 MIL/MM3 (4.00-5.30) Hemoglobin 13.2 GM/DL (11.6-15.3) Hematocrit 39.9 % (35.0-46.0) Mean Corpuscular Volume 95.5 FL (80.0-100.0) Mean Corpuscular Hemoglobin 31.5 PG (27.0-34.0) Mean Corpuscular Hemoglobin Concent 33.0 % (32.0-36.0) Red Cell Distribution Width 11.7 % (11.6-17.2) Platelet Count 203 TH/MM3 (150-450) Mean Platelet Volume 10.6 FL (7.0-11.0) Neutrophils (%) (Auto) 65.5 % (16.0-70.0) Lymphocytes (%) (Auto) 25.0 % (9.0-44.0) Monocytes (%) (Auto) 7.4 % (0.0-8.0) Eosinophils (%) (Auto) 1.6 % (0.0-4.0) Basophils (%) (Auto) 0.5 % (0.0-2.0) Neutrophils # (Auto) 3.4 TH/MM3 (1.8-7.7) Lymphocytes # (Auto) 1.3 TH/MM3 (1.0-4.8) Monocytes # (Auto) 0.4 TH/MM3 (0-0.9) Eosinophils # (Auto) 0.1 TH/MM3 (0-0.4) Basophils # (Auto) 0.0 TH/MM3 (0-0.2) CBC Comment DIFF FINAL Differential Comment Prothrombin Time 10.4 SEC (9.8-11.6) Prothromb Time International Ratio 1.0 RATIO Activated Partial Thromboplast Time 22.8 SEC (24.3-30.1) Fibrinogen 375 mg/dL (227-377) Blood Urea Nitrogen 19 MG/DL (7-18) Creatinine 1.10 MG/DL (0.50-1.00) Random Glucose 90 MG/DL (74-106) Calcium Level 8.9 MG/DL (8.5-10.1) Sodium Level 143 MEQ/L (136-145) Potassium Level 3.9 MEQ/L (3.5-5.1) Chloride Level 108 MEQ/L (98-107) Carbon Dioxide Level 27.5 MEQ/L (21.0-32.0) Anion Gap 8 MEQ/L (5-15) Estimat Glomerular Filtration Rate 47 ML/MIN (>89) Total Creatine Kinase 94 U/L (26-192) Troponin I 0.06 NG/ML (0.02-0.05) Human Chorionic Gonadotropin, Quant 3 MIU/ML (0-5) Urine Color YELLOW (YELLW/STRAW) Urine Turbidity CLEAR (CLEAR) Urine pH 5.5 (5.0-8.5) Urine Specific [place] 1.026 (1.002-1.035) Urine Protein NEG mg/dL (NEG-TRACE) Urine Glucose (UA) NEG mg/dL (NEG) Urine Ketones NEG mg/dL (NEG) Urine Occult Blood NEG (NEG) Urine Nitrite NEG (NEG) Urine Bilirubin NEG (NEG) Urine Leukocyte Esterase NEG (NEG) Urine RBC 0-2 /hpf (0-3) Urine WBC 0-2 /hpf (0-5) Urine Squamous Epithelial Cells 0-5 /hpf (0-5) Urine Bacteria NONE /hpf (NONE) Microscopic Urinalysis Comment Urine Opiates Screen NEG (NEG) Urine Barbiturates Screen NEG (NEG) Urine Amphetamines Screen NEG (NEG) Urine Benzodiazepines Screen NEG (NEG) Urine Cocaine Screen NEG (NEG) Urine Cannabinoids Screen NEG (NEG) Nasal Screen MRSA (PCR) MRSA NOT DETECTED (NOT Phosphorus Level 3.0 MG/DL (2.5-4.9) Test 05/13/17 02:18 White Blood Count 7.3 TH/MM3 (4.0-11.0) Red Blood Count 3.65 MIL/MM3 (4.00-5.30) Hemoglobin 12.4 GM/DL (11.6-15.3) Hematocrit 35.5 % (35.0-46.0) Mean Corpuscular Volume 97.3 FL (80.0-100.0) Mean Corpuscular Hemoglobin 34.0 PG (27.0-34.0) Mean Corpuscular Hemoglobin Concent 34.9 % (32.0-36.0) Red Cell Distribution Width 12.3 % (11.6-17.2) Platelet Count 160 TH/MM3 (150-450) Mean Platelet Volume 10.9 FL (7.0-11.0) Neutrophils (%) (Auto) 71.5 % (16.0-70.0) Lymphocytes (%) (Auto) 17.7 % (9.0-44.0) Monocytes (%) (Auto) 9.9 % (0.0-8.0) Eosinophils (%) (Auto) 0.5 % (0.0-4.0) Basophils (%) (Auto) 0.4 % (0.0-2.0) Neutrophils # (Auto) 5.2 TH/MM3 (1.8-7.7) Lymphocytes # (Auto) 1.3 TH/MM3 (1.0-4.8) Monocytes # (Auto) 0.7 TH/MM3 (0-0.9) Eosinophils # (Auto) 0.0 TH/MM3 (0-0.4) Basophils # (Auto) 0.0 TH/MM3 (0-0.2) CBC Comment DIFF FINAL Differential Comment Prothrombin Time 10.7 SEC (9.8-11.6) Prothromb Time International Ratio 1.1 RATIO Blood Urea Nitrogen 16 MG/DL (7-18) Creatinine 0.90 MG/DL (0.50-1.00) Random Glucose 85 MG/DL (74-106) Total Protein 6.0 GM/DL (6.4-8.2) Albumin 2.7 GM/DL (3.4-5.0) Calcium Level 8.4 MG/DL (8.5-10.1) Phosphorus Level 2.5 MG/DL (2.5-4.9) Magnesium Level 2.1 MG/DL (1.5-2.5) Alkaline Phosphatase 108 U/L (45-117) Aspartate Amino Transf (AST/SGOT) 20 U/L (15-37) Alanine Aminotransferase (ALT/SGPT) 21 U/L (10-53) Total Bilirubin 0.5 MG/DL (0.2-1.0) Sodium Level 144 MEQ/L (136-145) Potassium Level 3.7 MEQ/L (3.5-5.1) Chloride Level 114 MEQ/L (98-107) Carbon Dioxide Level 21.8 MEQ/L (21.0-32.0) Anion Gap 8 MEQ/L (5-15) Estimat Glomerular Filtration Rate 59 ML/MIN (>89) . Result Diagram: 05/13/1721705/13/17217 Imaging Last 72 hours Impressions Brain MRI 05/12/17 0000 Signed Impressions: Service Date/Time: Friday, May 12, 2017 11:37 - CONCLUSION: Extensive restricted diffusion is noted throughout the left frontal parietal lobe and left basal ganglia consistent with acute infarct. 4 mm of subfalcine herniation to the right are noted. Flow void is not identified within the left internal carotid artery indicating thrombosis. Clint Snider MD Neck CTA 05/11/17 0000 Signed Impressions: Service Date/Time: Thursday, May 11, 2017 21:01 - CONCLUSION: 1. Occluded left common and internal carotid arteries. 2. Patent right carotid system without significant stenosis. 3. Patent vertebral arteries. Adiel Chandler MD Head CTA 05/11/17 0000 Signed Impressions: Service Date/Time: Thursday, May 11, 2017 21:01 - CONCLUSION: 1. Occluded left internal carotid artery and proximal left middle cervical artery 2. 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 3. Intact right cerebral and vertebral basilar circulation. Adiel Chandler MD Head CT 05/11/17 0000 Signed Impressions: Service Date/Time: Thursday, May 11, 2017 20:15 - CONCLUSION: 1. Possible small cortical hemorrhage along the left occipital lobe 2. No other evidence of acute infarct or hemorrhage. Adiel Chandler MD . Patient/Family Conference Issues Discussed: * Palliative care role, purpose, approach * Additional medical, psychosocial, and spiritual history * Patients general health, functional status, and cognitive changes in the months leading up to the current hospitalization * Patient/family understanding of the current medical problems * Patient/family understanding of prognosis * Patients goals of care as best understood from advance directives and/or conversations and/or values * Current medical treatment options and benefits/burdens of those options * Likely scenarios comparing ongoing aggressive care with a transition to comfort measures only * Questions answered to the best of my ability * Palliative care contact information provided . Assessment and Plan Disease Oriented Problem List: (1) CVA (cerebral vascular accident) (2) Hypertension (3) Acute kidney injury Symptom Scale: (1) Encephalopathy (2) Weakness Pertinent Non-Medical Issues Psychosocial: Patient was born in [place]. She had 2 sisters and one brother; one sister is still living. The patient attended college where she met her . 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 Together she and her had 3 children (2 daughters and 1 son). One daughter from complications related to a hospitalization/MRSA infection. Her son was killed and a MCA. Bae is her only living child; she lives in [place]. The patient is a snowbird. She spends most of the year living independently in her home in [place] and spends a few months of the year living independently in her [facility] home. Spiritual: Synagogue heidi Legal: Per [place] statutes, in the absence of written advanced directives healthcare proxy decision-making falls to the patient's only living child. DaughterBea, states her mother completed written advanced directives 4 years ago after the of her . She will attempt to have a family member in [place] to locate the documents and fax them to the palliative care team. Ethical issues impacting care: No known ethical issues impacting care. . Important Contacts Bea Cabrera, daughter: [phone] . Code Status: No Code Plan * NO CODE * Decision-making: Per [place] statutes, in the absence of written advanced directives healthcare proxy decision-making falls to the patient's only living child. DaughterBea, states her mother completed written advanced directives 4 years ago after the of her . She will attempt to have a family member in [place] to locate the documents and fax them to the palliative care team. * Superintendent Laundry consult placed. * Discussed patient with bedside nurse (Delma) and Dr. Pride. * Goals remain aggressive up to the point of cardiopulmonary resuscitation * DaughterBea, states she may have already done more than her mother would have wanted. She does not feel her mother would want artificial nutrition or ongoing aggressive interventions if placement in an SNF and dependence on others is likely. She states is her mother does not improve, she would consider transitioning to comfort focused care at that time. * Symptom management-encephalopathy: Patient admitted with new onset right- sided weakness and difficulty speaking. NIH scale of 30. The CT of the head done in the emergency department showed possible left occipital cortical bleed and thus the patient was not a candidate for TPA administration. 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 Worsening neurological status today, withdrawing to left lower extremity only * Palliative care contact information was provided to the patient's daughter. * Palliative care will continue to follow this patient throughout her hospitalization to establish trust, assist with symptom management and clarification of medical treatment goals. . Thank you for the opportunity to participate in the care of Ms. Collazo. Elvira Kirk May 13, 2017 10:21
--- NOTE | 2017-05-13 12:32 | ECHRPT ---
Indication: cva/tia CONCLUSIONS The left ventricular systolic function is low normal with an estimated ejection fraction in the rang e of 50- 55%. Normal left ventricular size. [id number] mitral valve regurgitation. There is mild tricuspid valve regurgitation. The estimated pulmonary arterial pressure is 38.9 mmHg. BP: / HR: Rhythm: MEASUREMENTS (Male / Female) Normal Values Technical Quality:Fair 2D ECHO LV Diastolic Diameter PLAX 3.0 cm 4.2 - 5.9 / 3.9 - 5.3 cm LV Systolic Diameter PLAX 2.4 cm IVS Diastolic Thickness 1.1 cm 0.6 - 1.0 / 0.6 - 0.9 cm LVPW Diastolic Thickness 0.9 cm 0.6 - 1.0 / 0.6 - 0.9 cm LV Relative Wall Thickness 0.7 RV Internal Dim ED PLAX 2.4 cm M-MODE Aortic Root Diameter MM 3.1 cm LA Systolic Diameter MM 3.0 cm LA Ao Ratio MM 1.0 AV Cusp Separation MM 1.8 cm DOPPLER Mitral E Point Velocity 73.5 cm/s Mitral A Point Velocity 57.3 cm/s Mitral E to A Ratio 1.3 LV E' Lateral Velocity 7.9 cm/s Mitral E to LV E' Lateral Ratio 9.3 LV E' Septal Velocity 9.0 cm/s Mitral E to LV E' Septal Ratio 8.2 TR Peak Velocity 269.0 cm/s TR Peak Gradient 28.9 mmHg Right Atrial Pressure 10.0 mmHg Pulmonary Artery Systolic Pressu 38.9 mmHg Right Ventricular Systolic Press 38.9 mmHg FINDINGS LEFT VENTRICLE The left ventricular systolic function is low normal with an estimated ejection fraction in the rang e of 50- 55%. Normal left ventricular size. RIGHT VENTRICLE Normal right ventricular size and systolic function. LEFT ATRIUM The left atrial size is normal. RIGHT ATRIUM The right atrial size is normal. ATRIAL SEPTUM Normal atrial septal thickness without atrial level shunting by limited color doppler interrogation. AORTA The aortic root and proximal ascending aorta are normal in size on limited imaging. MITRAL VALVE Structurally normal mitral valve. [id number] mitral valve regurgitation. AORTIC VALVE Trileaflet aortic valve. No aortic valve stenosis or regurgitation. TRICUSPID VALVE Structurally normal tricuspid valve. There is mild tricuspid valve regurgitation. The estimated pulmonary arterial pressure is 38.9 mmHg. PULMONARY VALVE No pulmonary valve regurgitation or stenosis. VESSELS The inferior vena cava is normal in size. PERICARDIUM No pericardial effusion. Carlton Cruz MD, FACC (Electronically Signed) Final Date:13 May 2017 12:31
--- NOTE | 2017-05-13 12:45 | HHI.CCPN ---
Subjective Remarks/Hospital Course Note 05/12 - not saved? 86-year-old female with no significant past medical history presents after she was eating dinner with her family at 7:30 PM when she slumped over on the table and had onset of right sided weakness and difficulty speaking. The family immediately called EMS. With EMS the patient had a normal blood sugar but is unable to provide any further history. The CT of the head done in the emergency department showed possible left occipital cortical bleed and thus the patient was not a candidate for TPA administration. 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 Subjective 05/13: Tmax 102.4. Currently afebrile. Bradycardic and appears mottled lower extremities. Worsening neurological status. Withdraws to left lower extremity only. Objective Vital Signs Date Time Temp Pulse Resp B/P (MAP) Pulse Ox O2 Delivery O2 Flow Rate FiO2 05/13/17 12:00 39 05/13/17 12:00 99.0 18 180/81 (114) 99 05/13/17 07:00 Room Air 05/12/17 21:25 21 05/11/17 20:20 2.00 Intake and Output 05/13/17 05/13/17 05/14/17 08:00 16:00 00:00 Intake Total 1000 ml Output Total 350 ml Balance 650 ml Result Diagram: 05/13/1721705/13/178 Imaging Last Impressions Brain MRI 05/12/17 0000 Signed Impressions: Service Date/Time: Friday, May 12, 2017 11:37 - CONCLUSION: Extensive restricted diffusion is noted throughout the left frontal parietal lobe and left basal ganglia consistent with acute infarct. 4 mm of subfalcine herniation to the right are noted. Flow void is not identified within the left internal carotid artery indicating thrombosis. Clint Snider MD Neck CTA 05/11/17 0000 Signed Impressions: Service Date/Time: Thursday, May 11, 2017 21:01 - CONCLUSION: 1. Occluded left common and internal carotid arteries. 2. Patent right carotid system without significant stenosis. 3. Patent vertebral arteries. Adiel Chandler MD Head CTA 05/11/17 0000 Signed Impressions: Service Date/Time: Thursday, May 11, 2017 21:01 - CONCLUSION: 1. Occluded left internal carotid artery and proximal left middle cervical artery 2. 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 3. Intact right cerebral and vertebral basilar circulation. Adiel Chandler MD Head CT 05/11/17 0000 Signed Impressions: Service Date/Time: Thursday, May 11, 2017 20:15 - CONCLUSION: 1. Possible small cortical hemorrhage along the left occipital lobe 2. No other evidence of acute infarct or hemorrhage. Adiel Chandler MD Objective Remarks GENERAL: 86-year-old male currently critically ill SKIN: Focused skin assessment cool and dry with mottling at the knees HEAD: Atraumatic. Normocephalic. EYES: Pupils equal and round about 2 mm bilaterally and reactive. No injection or drainage. ENT: Moist mucous membranes NECK: Trachea midline. CARDIOVASCULAR: Bradycardic, RR. S1, S2 no S4. RESPIRATORY: Clear to auscultation. Breath sounds equal bilaterally. GASTROINTESTINAL: Abdomen soft, non-tender, nondistended. MUSCULOSKELETAL: No obvious deformities. NEUROLOGICAL: Does not follow commands, right sided facial droop, right upper and right lower extremity/assisting examination. Aphasic. Withdraws to left low greater than left upper extremity. Urinary Catheter: Yes Assessment to: Continue Cazares insert reason: Prolonged Immobilization Vascular Central Line Catheter: No Assessment to: Continue A/P Assessment and Plan Neuro/Psych: Left MCA CVA - right-sided weakness CTA head/neck revealed Complete occlusion of internal carotid and common carotid on the left along with left proximal MCA occlusion - No intervention available - Aspirin 600 mg CA daily - Atorvastatin 40 mg daily - Neurology consult Dr. Oneill - Palliative care consultation - Physical therapy eval and treat as tolerated - 2-D echo - The left ventricular systolic function is low normal with an estimated ejection fraction in the range of 50-55%. Normal left ventricular size. [id number] mitral valve regurgitation. There is mild tricuspid valve regurgitation. The estimated pulmonary arterial pressure is 38.9 mmHg. Ofirmev 1 g IV every 6 hours when necessary fever MRI brain revealed left frontal/parietal and basal ganglia CVA/infarction with 4 mm subfalcine herniation shift to the right. CV: Hypertension - Continue permissive hypertension - 2-D echo results as above Resp: Nasal cannula to maintain saturations greater than equal to 92% Incentive spirometry while awake GI: Patient is currently nothing by mouth Famotidine for GI prophylaxis Docusate sodium/senna for bowel regimen : Cazares catheter Endo: Sliding scale insulin to maintain euglycemia if indicated Renal/FEN: Acute kidney injury - Gentle IV hydration with normal saline at 84 cc an hour - Monitor electrolytes and replace per ICU protocol Heme: CBC within normal limits ID: Monitor for infection MSK: PT/OT evaluate and treat Access - Utilize peripheral IV. Central line if indicated Prophylaxis - GI - famotidine - DVT - SCD/holding pharmacological prophylaxis Level II follow-up Sriram Pride MD May 13, 2017 12:45
--- NOTE | 2017-05-13 20:09 | HHI.PR ---
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 Plan continue asa Diagnosis/Plan: Subjective Subjective Comments No acute events reported Active Medications Current Medications Medications (Trade) Dose Ordered Sig/Yeimy Route Start Time Stop Time Status Last Admin Sodium Chloride 1,000 ml @ 84 mls/hr [id number] IV 05/12/17 01:13 05/13/17 12:58 (NS Flush) 2 ml UNSCH PRN IV FLUSH 05/12/17 01:15 (NS Flush) 2 ml BID IV FLUSH 05/12/17 09:00 05/12/17 07:31 (Tylenol) 650 mg Q6H PRN PO 05/12/17 01:15 (Morphine Inj) 2 mg Q2H PRN IV PUSH 05/12/17 01:15 (Versed Inj) 2 mg Q1H PRN IV PUSH 05/12/17 01:15 (Tears Naturale Opth Soln) 1 drop TID EACH EYE 05/12/17 09:00 05/13/17 18:01 (Zofran Inj) 4 mg Q6H PRN IV PUSH 05/12/17 01:15 (Duoneb Neb) 1 ampule Q2HR NEB PRN INH 05/12/17 01:15 Miscellaneous Information 1 Q361D XX 05/12/17 01:15 05/12/17 01:34 (Chlorhexidine 2% Cloth) 3 pack Taper DAILY@04 TOP 05/12/17 04:00 05/08/18 03:59 (Chlorhexidine 2% Cloth) 3 pack UNSCH PRN TOP 05/12/17 01:15 (Chanelle-Colace) 1 tab BID PO 05/12/17 09:00 (Milk Of Magnesia Liq) 30 ml Q12H PRN PO 05/12/17 01:15 (Senokot) 17.2 mg Q12H PRN PO 05/12/17 01:15 (Dulcolax Supp) 10 mg DAILY PRN RECTAL 05/12/17 01:15 (Lactulose Liq) 30 ml DAILY PRN PO 05/12/17 01:15 Potassium Chloride 100 ml @ 50 mls/hr Q2H PRN IV 05/12/17 01:30 Potassium Chloride 100 ml @ 50 mls/hr Q2H PRN IV 05/12/17 01:30 (K-Lyte Cl Eff) 50 meq UNSCH PRN PO 05/12/17 01:30 Potassium Chloride 100 ml @ 25 mls/hr UNSCH PRN IV 05/12/17 01:30 Potassium Chloride 100 ml @ 50 mls/hr Q2H PRN IV 05/12/17 01:30 Magnesium Sulfate 4 gm/Sodium Chloride 100 ml @ 50 mls/hr UNSCH PRN IV 05/12/17 01:30 (Mag-Ox) 800 mg UNSCH PRN PO 05/12/17 01:30 Magnesium Sulfate 2 gm/Sodium Chloride 100 ml @ 50 mls/hr UNSCH PRN IV 05/12/17 01:30 (K-Phos) 2,000 mg Q4H PRN PO 05/12/17 01:30 Sodium Phosphate 30 mmol/Sodium Chloride 250 ml @ 42 mls/hr UNSCH PRN IV 05/12/17 01:30 (K-Phos) 2,000 mg UNSCH PRN PO/TUBE 05/12/17 01:30 Potassium Phosphate 30 mmol/ Sodium Chloride 260 ml @ 42 mls/hr UNSCH PRN IV 05/12/17 01:30 (Aspirin Supp) 600 mg DAILY RECTAL 05/12/17 09:00 05/13/17 09:59 (Lipitor) 40 mg HS PO 05/12/17 21:00 (Pepcid Inj) 10 mg Q12HR IV PUSH 05/12/17 09:00 05/13/17 09:59 Acetaminophen 100 ml @ 400 mls/hr Q6H PRN IV 05/12/17 21:30 Allergies Allergies Coded Allergies No Known Drug Allergies (Verified Allergy, Unknown, 05/11/17) Exam I&O / VS 05/13/17 05/13/17 05/14/17 15:00 23:00 07:00 Intake Total 0 ml Output Total 650 ml Balance -650 ml Intake Oral 0 ml Output Urine Total 650 ml # Bowel Movements 0 Vital Signs Date Time Temp Pulse Resp B/P (MAP) Pulse Ox O2 Delivery O2 Flow Rate FiO2 05/13/17 18:00 71 05/13/17 16:00 98.0 39 21 163/74 (103) 100 05/13/17 16:00 45 05/13/17 14:00 40 05/13/17 12:00 39 05/13/17 12:00 99.0 37 18 180/81 (114) 99 05/13/17 10:00 42 05/13/17 08:15 100 05/13/17 08:00 40 05/13/17 08:00 99.0 40 20 157/70 (99) 99 05/13/17 07:00 Room Air 05/13/17 06:00 46 05/13/17 04:00 98.6 44 18 151/70 (97) 100 05/13/17 04:00 44 05/13/17 02:00 52 05/13/17 00:00 98.4 44 14 167/77 (107) 99 05/13/17 00:00 44 05/12/17 22:00 46 05/12/17 21:25 100 21 Exam Comments more alert, expressive aphasia CN--pupils left 2 mm right 1 1/2 mm both reactive. MOTOR--moves left upper and lower extremity to stimuli, postures RUE with decerebrate posturing. No withdrawal RLE Objective Radiology Results MRI brain---large left MCA stroke Micro and Labs Laboratory Tests Test 05/13/17 02:18 White Blood Count 7.3 Red Blood Count 3.65 Hemoglobin 12.4 Hematocrit 35.5 Mean Corpuscular Volume 97.3 Mean Corpuscular Hemoglobin 34.0 Mean Corpuscular Hemoglobin Concent 34.9 Red Cell Distribution Width 12.3 Platelet Count 160 Mean Platelet Volume 10.9 Neutrophils (%) (Auto) 71.5 Lymphocytes (%) (Auto) 17.7 Monocytes (%) (Auto) 9.9 Eosinophils (%) (Auto) 0.5 Basophils (%) (Auto) 0.4 Neutrophils # (Auto) 5.2 Lymphocytes # (Auto) 1.3 Monocytes # (Auto) 0.7 Eosinophils # (Auto) 0.0 Basophils # (Auto) 0.0 CBC Comment DIFF FINAL Differential Comment Prothrombin Time 10.7 Prothromb Time International Ratio 1.1 Blood Urea Nitrogen 16 Creatinine 0.90 Random Glucose 85 Total Protein 6.0 Albumin 2.7 Calcium Level 8.4 Phosphorus Level 2.5 Magnesium Level 2.1 Alkaline Phosphatase 108 Aspartate Amino Transf (AST/SGOT) 20 Alanine Aminotransferase (ALT/SGPT) 21 Total Bilirubin 0.5 Sodium Level 144 Potassium Level 3.7 Chloride Level 114 Carbon Dioxide Level 21.8 Anion Gap 8 Estimat Glomerular Filtration Rate 59 Kirby Oneill MD PhD May 13, 2017 20:09
[2017-05-13] MEDS: ATORVASTATIN 40 MG TAB PO SCH (20:26)
[2017-05-14] VITALS (13 sets, daily range): BP systolic 126–169; BP diastolic 60–77; PULSE 42–64; RESP 17–28; TEMP 98.1–99; O2SAT 97–100
[2017-05-14] MEDS: CHLORHEXIDINE GLUCONATE 2 % 1 PACK (2 CLOTHS) TOP SCH (00:20)
[2017-05-14] MEDS: SODIUM CHLOR 0.9% 1000 ML INJ 1,000 ML IV SCH ×2 (04:02→14:27)
[2017-05-14 04:51] LABS: HEMOGLOBIN 13.2 GM/DL (11.6-15.3); MEAN CELL VOLUME 97.2 FL (80.0-100.0); MEAN CORPUSCULAR HEMOGLOBIN 32.9 PG (27.0-34.0); MEAN CORPUSCULAR HGB CONC 33.8 % (32.0-36.0); MEAN PLATELET VOLUME 11.5 FL (7.0-11.0); PLATELET COUNT 145 TH/MM3 (150-450); RED BLOOD COUNT 4.01 MIL/MM3 (4.00-5.30); RED CELL DISTRIBUTION WIDTH 12.1 % (11.6-17.2); WHITE BLOOD COUNT 8.7 TH/MM3 (4.0-11.0)
[2017-05-14] MEDS: SODIUM CHLORIDE 0.9% FLUSH 10 ML FLUSH IV FLUSH SCH ×2 (09:00→20:19)
[2017-05-14] MEDS: ARTIFICIAL TEARS OPTH SOLN 15 ML BTL EACH EYE SCH ×3 (09:00→18:00)
[2017-05-14] MEDS: FAMOTIDINE 20 MG/2 ML VIAL IV PUSH SCH ×2 (09:00→20:19)
[2017-05-14] MEDS: DOCUSATE SODIUM 50 MG/SENNA 8.6 MG TAB PO SCH ×2 (09:00→20:20)
[2017-05-14] MEDS: ASPIRIN 600 MG SUPP RECTAL SCH (09:00)
[2017-05-14 09:01] LABS: CALCIUM 8.4 MG/DL (8.5-10.1); CREATININE 0.89 MG/DL (0.50-1.00)
--- NOTE | 2017-05-14 14:04 | HHI.CCPN ---
Subjective Remarks/Hospital Course Note 05/12 - not saved? 86-year-old female with no significant past medical history presents after she was eating dinner with her family at 7:30 PM when she slumped over on the table and had onset of right sided weakness and difficulty speaking. The family immediately called EMS. With EMS the patient had a normal blood sugar but is unable to provide any further history. The CT of the head done in the emergency department showed possible left occipital cortical bleed and thus the patient was not a candidate for TPA administration. 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 05/13: Tmax 102.4. Currently afebrile. Bradycardic and appears mottled lower extremities. Worsening neurological status. Withdraws to left lower extremity only. Subjective 05/14: Afebrile. Neurologically unchanged. GCS around 8. Discussed with daughter patient of NG tube for feeding. Declines at the present time. Objective Vital Signs Date Time Temp Pulse Resp B/P (MAP) Pulse Ox O2 Delivery O2 Flow Rate FiO2 05/14/17 08:03 100 21 05/14/17 08:00 47 05/14/17 07:00 Room Air 05/14/17 04:00 98.8 19 145/63 (90) 05/11/17 20:20 2.00 Intake and Output 05/14/17 05/14/17 05/15/17 08:00 16:00 00:00 Intake Total 1172 ml Output Total 800 ml Balance 372 ml Result Diagram: 05/14/17 0349 05/14/17 0819 Imaging Last Impressions Brain MRI 05/12/17 0000 Signed Impressions: Service Date/Time: Friday, May 12, 2017 11:37 - CONCLUSION: Extensive restricted diffusion is noted throughout the left frontal parietal lobe and left basal ganglia consistent with acute infarct. 4 mm of subfalcine herniation to the right are noted. Flow void is not identified within the left internal carotid artery indicating thrombosis. Clint Snider MD Neck CTA 05/11/17 0000 Signed Impressions: Service Date/Time: Thursday, May 11, 2017 21:01 - CONCLUSION: 1. Occluded left common and internal carotid arteries. 2. Patent right carotid system without significant stenosis. 3. Patent vertebral arteries. Adiel Chandler MD Head CTA 05/11/17 0000 Signed Impressions: Service Date/Time: Thursday, May 11, 2017 21:01 - CONCLUSION: 1. Occluded left internal carotid artery and proximal left middle cervical artery 2. 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 3. Intact right cerebral and vertebral basilar circulation. Adiel Chandler MD Head CT 05/11/17 0000 Signed Impressions: Service Date/Time: Thursday, May 11, 2017 20:15 - CONCLUSION: 1. Possible small cortical hemorrhage along the left occipital lobe 2. No other evidence of acute infarct or hemorrhage. Adiel Chandler MD Objective Remarks GENERAL: 86-year-old male currently critically ill SKIN: Focused skin assessment cool and dry with mottling at the knees HEAD: Atraumatic. Normocephalic. EYES: Pupils equal and round about 2 mm bilaterally and reactive. No injection or drainage. ENT: Moist mucous membranes NECK: Trachea midline. CARDIOVASCULAR: Bradycardic, RR. S1, S2 no S4. RESPIRATORY: Clear to auscultation. Breath sounds equal bilaterally. GASTROINTESTINAL: Abdomen soft, non-tender, nondistended. MUSCULOSKELETAL: No obvious deformities. NEUROLOGICAL: Does not follow commands, right sided facial droop, right upper extremity flaccid. And right lower extremity withdraws to pain, decerebrate. Currently aphasic. Spontaneously moves left upper extremity. Withdraws to left lower extremity. A/P Assessment and Plan Neuro/Psych: Left MCA CVA - right-sided weakness CTA head/neck revealed Complete occlusion of internal carotid and common carotid on the left along with left proximal MCA occlusion - No intervention available - Aspirin 600 mg MA daily - Atorvastatin 40 mg daily - Neurology consult Dr. Oneill - Palliative care consultation - Physical therapy eval and treat as tolerated - 2-D echo - The left ventricular systolic function is low normal with an estimated ejection fraction in the range of 50-55%. Normal left ventricular size. Wihmp-[id number] mitral valve regurgitation. There is mild tricuspid valve regurgitation. The estimated pulmonary arterial pressure is 38.9 mmHg. Ofirmev 1 g IV every 6 hours when necessary fever MRI brain revealed left frontal/parietal and basal ganglia CVA/infarction with 4 mm subfalcine herniation shift to the right. CV: Hypertension - Continue permissive hypertension - 2-D echo results as above Resp: Nasal cannula to maintain saturations greater than equal to 92% Incentive spirometry while awake GI: Patient is currently nothing by mouth Famotidine for GI prophylaxis Docusate sodium/senna for bowel regimen : Cazares catheter Endo: Sliding scale insulin to maintain euglycemia if indicated Renal/FEN: Acute kidney injury - Gentle IV hydration with normal saline at 84 cc an hour - Monitor electrolytes and replace per ICU protocol Heme: CBC within normal limits ID: Monitor for infection MSK: PT/OT evaluate and treat Access - Utilize peripheral IV. Central line if indicated Prophylaxis - GI - famotidine - DVT - SCD/holding pharmacological prophylaxis Level II follow-up Sriram Pride MD May 14, 2017 14:04
--- NOTE | 2017-05-14 15:32 | HHI.HCPN ---
Reason for visit a. To assist with evaluation and management of symptoms including: Encephalopathy, weakness, dysphagia b. To assist medical decision maker(s) with: better understanding of current medical conditions; weighing benefits/burdens of medical treatment options; making medical treatment decisions. Subjective/Interval History Ms. Collazo is an 86-year-old female who presented to [facility] ED as a stroke alert on 05/11/2017. NIH stroke scale of 30. On exam the patient had right- sided hemiplegia in both upper and lower extremities. CTA head/neck revealed complete occlusion of internal carotid and common carotid on the left along with left proximal MCA occlusion. MRI brain revealed left frontal/parietal and basal ganglia CVA/infarction with 4 mm subfalcine herniation shift to the right. Follow up visit for symptom management and clarification of medical treatment goals: Patient is less alert, less active today. GCS of 8. Right upper extremity remains flaccid. Physical therapy following. Afebrile. Respirations are unlabored on room air; patient remains bradycardic with a heart rate in the 40s. Patient remains unable to follow commands and unable to trigger swallow, therefore remains NPO. Daughter refusing NGT placement for artificial nutrition. Family attempting to locate patient's living will to provide direction regarding medical treatment goals; daughter does not think her mother would want ongoing aggressive interventions if it meant she would be dependent for all care. . Advance Directives Advance Directive Specifics Health Care Surrogate(s): Per [place] statutes, in the absence of written advanced directives healthcare proxy decision making would fall to the patient's only living child. Bea Castaneda, states the patient completed some written advanced directives after her 4 years ago. She will attempt to have a family member go to her house and fax them to the palliative care team . Documented care wishes: Bea Castaneda, states the patient completed some written advanced directives after her 4 years ago. She will attempt to have a family member go to her house and fax them to the palliative care team. . Objective Vital Signs Date Time Temp Pulse Resp B/P (MAP) Pulse Ox O2 Delivery O2 Flow Rate FiO2 05/14/17 08:03 100 21 05/14/17 08:00 47 05/14/17 07:00 99 Room Air 05/14/17 06:00 43 05/14/17 04:00 43 05/14/17 04:00 98.8 42 19 145/63 (90) 97 05/14/17 02:00 42 05/14/17 00:00 98.1 44 17 126/60 (82) 98 05/14/17 00:00 44 05/13/17 22:00 69 05/13/17 20:24 100 21 05/13/17 20:00 70 05/13/17 20:00 Room Air 05/13/17 20:00 98.5 46 20 196/79 (118) 100 05/13/17 18:00 71 05/13/17 16:00 98.0 39 21 163/74 (103) 100 05/13/17 16:00 45 Intake & Output 05/14/17 05/14/17 06:59 18:59 Intake Total 1172 ml 828 ml Output Total 800 ml Balance 372 ml 828 ml Intake Oral 0 ml IV Total 1172 ml 828 ml Output Urine Total 800 ml # Bowel Movements 0 . Physical Exam CONSTITUTIONAL/GENERAL: This is a pale elderly female patient in no acute distress TUBES/LINES/DRAINS: PIV 2 SKIN: No wounds seen anteriorly. Skin temperature appropriate. Not diaphoretic. HEAD: Atraumatic. Normocephalic. EYES: Pupils equal and round about 2 mm bilaterally and reactive. No injection or drainage. No scleral icterus ENT: Nose without bleeding or purulent drainage. Mucous membranes moist and pink NECK: Trachea midline. CARDIOVASCULAR: Bradycardic. No JVD. RESPIRATORY/CHEST: Symmetric, unlabored respirations. Clear to auscultation. Breath sounds equal bilaterally. GASTROINTESTINAL: Abdomen soft, non-tender, nondistended. No guarding. Bowel sounds present. GENITOURINARY: Without palpable bladder distension. MUSCULOSKELETAL: Extremities without clubbing, cyanosis, or edema. LYMPHATICS: No palpable cervical or supraclavicular adenopathy. NEUROLOGICAL: Does not follow commands, right sided facial droop, right upper remains flaccid. Aphasic. PSYCHIATRIC: Unable to assess secondary to clinical condition . Diagnostic Tests Laboratory Laboratory Tests Test 05/11/17 20:30 05/11/17 20:50 05/12/17 00:40 05/12/17 05:17 White Blood Count 5.2 TH/MM3 (4.0-11.0) Red Blood Count 4.18 MIL/MM3 (4.00-5.30) Hemoglobin 13.2 GM/DL (11.6-15.3) Hematocrit 39.9 % (35.0-46.0) Mean Corpuscular Volume 95.5 FL (80.0-100.0) Mean Corpuscular Hemoglobin 31.5 PG (27.0-34.0) Mean Corpuscular Hemoglobin Concent 33.0 % (32.0-36.0) Red Cell Distribution Width 11.7 % (11.6-17.2) Platelet Count 203 TH/MM3 (150-450) Mean Platelet Volume 10.6 FL (7.0-11.0) Neutrophils (%) (Auto) 65.5 % (16.0-70.0) Lymphocytes (%) (Auto) 25.0 % (9.0-44.0) Monocytes (%) (Auto) 7.4 % (0.0-8.0) Eosinophils (%) (Auto) 1.6 % (0.0-4.0) Basophils (%) (Auto) 0.5 % (0.0-2.0) Neutrophils # (Auto) 3.4 TH/MM3 (1.8-7.7) Lymphocytes # (Auto) 1.3 TH/MM3 (1.0-4.8) Monocytes # (Auto) 0.4 TH/MM3 (0-0.9) Eosinophils # (Auto) 0.1 TH/MM3 (0-0.4) Basophils # (Auto) 0.0 TH/MM3 (0-0.2) CBC Comment DIFF FINAL Differential Comment Prothrombin Time 10.4 SEC (9.8-11.6) Prothromb Time International Ratio 1.0 RATIO Activated Partial Thromboplast Time 22.8 SEC (24.3-30.1) Fibrinogen 375 mg/dL (227-377) Blood Urea Nitrogen 19 MG/DL (7-18) Creatinine 1.10 MG/DL (0.50-1.00) Random Glucose 90 MG/DL (74-106) Calcium Level 8.9 MG/DL (8.5-10.1) Sodium Level 143 MEQ/L (136-145) Potassium Level 3.9 MEQ/L (3.5-5.1) Chloride Level 108 MEQ/L (98-107) Carbon Dioxide Level 27.5 MEQ/L (21.0-32.0) Anion Gap 8 MEQ/L (5-15) Estimat Glomerular Filtration Rate 47 ML/MIN (>89) Total Creatine Kinase 94 U/L (26-192) Troponin I 0.06 NG/ML (0.02-0.05) Human Chorionic Gonadotropin, Quant 3 MIU/ML (0-5) Urine Color YELLOW (YELLW/STRAW) Urine Turbidity CLEAR (CLEAR) Urine pH 5.5 (5.0-8.5) Urine Specific [place] 1.026 (1.002-1.035) Urine Protein NEG mg/dL (NEG-TRACE) Urine Glucose (UA) NEG mg/dL (NEG) Urine Ketones NEG mg/dL (NEG) Urine Occult Blood NEG (NEG) Urine Nitrite NEG (NEG) Urine Bilirubin NEG (NEG) Urine Leukocyte Esterase NEG (NEG) Urine RBC 0-2 /hpf (0-3) Urine WBC 0-2 /hpf (0-5) Urine Squamous Epithelial Cells 0-5 /hpf (0-5) Urine Bacteria NONE /hpf (NONE) Microscopic Urinalysis Comment Urine Opiates Screen NEG (NEG) Urine Barbiturates Screen NEG (NEG) Urine Amphetamines Screen NEG (NEG) Urine Benzodiazepines Screen NEG (NEG) Urine Cocaine Screen NEG (NEG) Urine Cannabinoids Screen NEG (NEG) Nasal Screen MRSA (PCR) MRSA NOT DETECTED (NOT Phosphorus Level 3.0 MG/DL (2.5-4.9) Test 05/13/17 02:18 05/14/17 03:49 05/14/17 08:19 White Blood Count 7.3 TH/MM3 (4.0-11.0) 8.7 TH/MM3 (4.0-11.0) Red Blood Count 3.65 MIL/MM3 (4.00-5.30) 4.01 MIL/MM3 (4.00-5.30) Hemoglobin 12.4 GM/DL (11.6-15.3) 13.2 GM/DL (11.6-15.3) Hematocrit 35.5 % (35.0-46.0) 39.0 % (35.0-46.0) Mean Corpuscular Volume 97.3 FL (80.0-100.0) 97.2 FL (80.0-100.0) Mean Corpuscular Hemoglobin 34.0 PG (27.0-34.0) 32.9 PG (27.0-34.0) Mean Corpuscular Hemoglobin Concent 34.9 % (32.0-36.0) 33.8 % (32.0-36.0) Red Cell Distribution Width 12.3 % (11.6-17.2) 12.1 % (11.6-17.2) Platelet Count 160 TH/MM3 (150-450) 145 TH/MM3 (150-450) Mean Platelet Volume 10.9 FL (7.0-11.0) 11.5 FL (7.0-11.0) Neutrophils (%) (Auto) 71.5 % (16.0-70.0) Lymphocytes (%) (Auto) 17.7 % (9.0-44.0) Monocytes (%) (Auto) 9.9 % (0.0-8.0) Eosinophils (%) (Auto) 0.5 % (0.0-4.0) Basophils (%) (Auto) 0.4 % (0.0-2.0) Neutrophils # (Auto) 5.2 TH/MM3 (1.8-7.7) Lymphocytes # (Auto) 1.3 TH/MM3 (1.0-4.8) Monocytes # (Auto) 0.7 TH/MM3 (0-0.9) Eosinophils # (Auto) 0.0 TH/MM3 (0-0.4) Basophils # (Auto) 0.0 TH/MM3 (0-0.2) CBC Comment DIFF FINAL Differential Comment Prothrombin Time 10.7 SEC (9.8-11.6) Prothromb Time International Ratio 1.1 RATIO Blood Urea Nitrogen 16 MG/DL (7-18) 14 MG/DL (7-18) Creatinine 0.90 MG/DL (0.50-1.00) 0.89 MG/DL (0.50-1.00) Random Glucose 85 MG/DL (74-106) 69 MG/DL (74-106) Total Protein 6.0 GM/DL (6.4-8.2) Albumin 2.7 GM/DL (3.4-5.0) Calcium Level 8.4 MG/DL (8.5-10.1) 8.4 MG/DL (8.5-10.1) Phosphorus Level 2.5 MG/DL (2.5-4.9) Magnesium Level 2.1 MG/DL (1.5-2.5) Alkaline Phosphatase 108 U/L (45-117) Aspartate Amino Transf (AST/SGOT) 20 U/L (15-37) Alanine Aminotransferase (ALT/SGPT) 21 U/L (10-53) Total Bilirubin 0.5 MG/DL (0.2-1.0) Sodium Level 144 MEQ/L (136-145) 141 MEQ/L (136-145) Potassium Level 3.7 MEQ/L (3.5-5.1) 3.7 MEQ/L (3.5-5.1) Chloride Level 114 MEQ/L (98-107) 109 MEQ/L (98-107) Carbon Dioxide Level 21.8 MEQ/L (21.0-32.0) 24.0 MEQ/L (21.0-32.0) Anion Gap 8 MEQ/L (5-15) 8 MEQ/L (5-15) Estimat Glomerular Filtration Rate 59 ML/MIN (>89) 60 ML/MIN (>89) Result Diagram: 05/14/17 0349 05/14/17 0819 Imaging Last 72 hours Impressions Brain MRI 05/12/17 0000 Signed Impressions: Service Date/Time: Friday, May 12, 2017 11:37 - CONCLUSION: Extensive restricted diffusion is noted throughout the left frontal parietal lobe and left basal ganglia consistent with acute infarct. 4 mm of subfalcine herniation to the right are noted. Flow void is not identified within the left internal carotid artery indicating thrombosis. Clint Snider MD . Assessment and Plan Disease Oriented Problem List: (1) CVA (cerebral vascular accident) (2) Hypertension (3) Acute kidney injury Symptom Scale: (1) Encephalopathy (2) Weakness Pertinent Non-Medical Issues Psychosocial: Patient was born in [place]. She had 2 sisters and one brother; one sister is still living. The patient attended college where she met her . 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 Together she and her had 3 children (2 daughters and 1 son). One daughter from complications related to a hospitalization/MRSA infection. Her son was killed and a MCA. Bea is her only living child; she lives in [place]. The patient is a snowbird. She spends most of the year living independently in her home in [place] and spends a few months of the year living independently in her [facility] home. Spiritual: Orthodox heidi Legal: Per [place] statutes, in the absence of written advanced directives healthcare proxy decision-making falls to the patient's only living child. DaughterBea, states her mother completed written advanced directives 4 years ago after the of her . She will attempt to have a family member in [place] to locate the documents and fax them to the palliative care team. Ethical issues impacting care: No known ethical issues impacting care. . Important Contacts Bea Cabrera, daughter: [phone] . 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 Neurological status remains unchanged with dysphagia. Daughter refusing NGT for artificial nutrition. She is high risk for ongoing decline; family considering transition to comfort focused care. . Code Status: No Code Plan * NO CODE * Decision-making: Per [place] statutes, in the absence of written advanced directives healthcare proxy decision-making falls to the patient's only living child. DaughterBea, states her mother completed written advanced directives 4 years ago after the of her . She will attempt to have a family member in [place] to locate the documents and fax them to the palliative care team. * Discussed patient with bedside nurse, Dr. Pride and case hardener (Sindy). * Goals remain aggressive up to the point of cardiopulmonary resuscitation * DaughterBea, states she may have already done more than her mother would have wanted. She does not feel her mother would want artificial nutrition or ongoing aggressive interventions if placement in an SNF and dependence on others is likely. She states is her mother does not improve, she would consider transitioning to comfort focused care at that time. * Family would like to coordinate medical transport home ([place] or [place]) if possible; Patient is currently stable enough for transfer per Dr. Pride. Discussed with case hardener, Sindy, who will follow up with patient's daughter. * Symptom management-encephalopathy: Patient admitted with new onset right- sided weakness and difficulty speaking. NIH scale of 30. The CT of the head done in the emergency department showed possible left occipital cortical bleed and thus the patient was not a candidate for TPA administration. 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 Worsening neurological status today, withdrawing to left lower extremity only. * Symptom management- dysphagia: Patient remains unable to follow commands and unable to trigger swallow, therefore she remains NPO. Daughter refusing NGT placement for artificial nutrition. Family attempting to locate patient's living will to provide direction regarding medical treatment goals; daughter does not think her mother would want ongoing aggressive interventions if it meant she would be dependent for all care. * Palliative care contact information was provided to the patient's daughter. * Palliative care will continue to follow this patient throughout her hospitalization to establish trust, assist with symptom management and clarification of medical treatment goals. . Attestation To help prompt me to consider important information that might be impacting today's encounter and assessment, information from prior notes written by myself or my colleagues may have been "brought forward" into today's note. My signature on this note, however, is an attestation that I personally performed the exam, history, and/or decision-making noted today, and, unless otherwise indicated, the interactions with patient, family, and staff as well as the review of records all occurred today. I also attest that the listed assessment and stated plan reflect my best clinical judgment today based on the combination of historical information, prior notes, and today's exam/ interactions. When time spent is documented, it refers only to time spent today by the signer, or if indicated, combined time spent today by collaborating physician/nurse practitioner. . Elvira Kirk May 14, 2017 15:32
[2017-05-14] MEDS: ATORVASTATIN 40 MG TAB PO SCH (20:20)
--- NOTE | 2017-05-14 22:03 | HHI.PR ---
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 Plan continue asa Diagnosis/Plan: Subjective Subjective Comments No acute events reported Active Medications Current Medications Medications (Trade) Dose Ordered Sig/Yeimy Route Start Time Stop Time Status Last Admin Sodium Chloride 1,000 ml @ 84 mls/hr [id number] IV 05/12/17 01:13 05/14/17 14:27 (NS Flush) 2 ml UNSCH PRN IV FLUSH 05/12/17 01:15 (NS Flush) 2 ml BID IV FLUSH 05/12/17 09:00 05/14/17 20:19 (Tylenol) 650 mg Q6H PRN PO 05/12/17 01:15 (Morphine Inj) 2 mg Q2H PRN IV PUSH 05/12/17 01:15 05/13/17 22:39 (Versed Inj) 2 mg Q1H PRN IV PUSH 05/12/17 01:15 (Tears Naturale Opth Soln) 1 drop TID EACH EYE 05/12/17 09:00 05/14/17 18:00 (Zofran Inj) 4 mg Q6H PRN IV PUSH 05/12/17 01:15 (Duoneb Neb) 1 ampule Q2HR NEB PRN INH 05/12/17 01:15 Miscellaneous Information 1 [id number] XX 05/12/17 01:15 05/12/17 01:34 (Chlorhexidine 2% Cloth) 3 pack Taper DAILY@04 TOP 05/12/17 04:00 05/08/18 03:59 (Chlorhexidine 2% Cloth) 3 pack UNSCH PRN TOP 05/12/17 01:15 (Chanelle-Colace) 1 tab BID PO 05/12/17 09:00 (Milk Of Magnesia Liq) 30 ml Q12H PRN PO 05/12/17 01:15 (Senokot) 17.2 mg Q12H PRN PO 05/12/17 01:15 (Dulcolax Supp) 10 mg DAILY PRN RECTAL 05/12/17 01:15 (Lactulose Liq) 30 ml DAILY PRN PO 05/12/17 01:15 Potassium Chloride 100 ml @ 50 mls/hr Q2H PRN IV 05/12/17 01:30 Potassium Chloride 100 ml @ 50 mls/hr Q2H PRN IV 05/12/17 01:30 (K-Lyte Cl Eff) 50 meq UNSCH PRN PO 05/12/17 01:30 Potassium Chloride 100 ml @ 25 mls/hr UNSCH PRN IV 05/12/17 01:30 Potassium Chloride 100 ml @ 50 mls/hr Q2H PRN IV 05/12/17 01:30 Magnesium Sulfate 4 gm/Sodium Chloride 100 ml @ 50 mls/hr UNSCH PRN IV 05/12/17 01:30 (Mag-Ox) 800 mg UNSCH PRN PO 05/12/17 01:30 Magnesium Sulfate 2 gm/Sodium Chloride 100 ml @ 50 mls/hr UNSCH PRN IV 05/12/17 01:30 (K-Phos) 2,000 mg Q4H PRN PO 05/12/17 01:30 Sodium Phosphate 30 mmol/Sodium Chloride 250 ml @ 42 mls/hr UNSCH PRN IV 05/12/17 01:30 (K-Phos) 2,000 mg UNSCH PRN PO/TUBE 05/12/17 01:30 Potassium Phosphate 30 mmol/ Sodium Chloride 260 ml @ 42 mls/hr UNSCH PRN IV 05/12/17 01:30 (Aspirin Supp) 600 mg DAILY RECTAL 05/12/17 09:00 05/14/17 09:00 (Lipitor) 40 mg HS PO 05/12/17 21:00 (Pepcid Inj) 10 mg Q12HR IV PUSH 05/12/17 09:00 05/14/17 20:19 Acetaminophen 100 ml @ 400 mls/hr Q6H PRN IV 05/12/17 21:30 Allergies Allergies Coded Allergies No Known Drug Allergies (Verified Allergy, Unknown, 05/11/17) Exam I&O / VS 05/14/17 05/14/17 05/15/17 15:00 23:00 07:00 Intake Total 828 ml 250 ml Output Total 350 ml Balance 828 ml -100 ml Intake Oral 0 ml IV Total 828 ml 250 ml Output Urine Total 350 ml # Bowel Movements 0 Vital Signs Date Time Temp Pulse Resp B/P (MAP) Pulse Ox O2 Delivery O2 Flow Rate FiO2 05/14/17 20:00 99.0 48 28 168/77 (107) 97 05/14/17 20:00 48 05/14/17 20:00 99 Room Air 05/14/17 18:00 47 05/14/17 16:00 64 05/14/17 16:00 98.2 64 26 169/77 (107) 100 05/14/17 14:00 42 05/14/17 12:00 98.7 46 18 156/69 (98) 99 05/14/17 12:00 46 05/14/17 10:00 46 05/14/17 08:03 100 21 05/14/17 08:00 98.8 46 23 153/74 (100) 99 05/14/17 08:00 47 05/14/17 07:00 99 Room Air 05/14/17 06:00 43 05/14/17 04:00 43 05/14/17 04:00 98.8 42 19 145/63 (90) 97 05/14/17 02:00 42 05/14/17 00:00 98.1 44 17 126/60 (82) 98 05/14/17 00:00 44 Exam Comments alert, expressive aphasia CN--pupils left 2 mm right 1 1/2 mm both reactive. MOTOR--moves left upper and lower extremity to stimuli, no movement RUE or RLE Objective Micro and Labs Laboratory Tests Test 05/14/17 03:49 05/14/17 08:19 White Blood Count 8.7 Red Blood Count 4.01 Hemoglobin 13.2 Hematocrit 39.0 Mean Corpuscular Volume 97.2 Mean Corpuscular Hemoglobin 32.9 Mean Corpuscular Hemoglobin Concent 33.8 Red Cell Distribution Width 12.1 Platelet Count 145 Mean Platelet Volume 11.5 Blood Urea Nitrogen 14 Creatinine 0.89 Random Glucose 69 Calcium Level 8.4 Sodium Level 141 Potassium Level 3.7 Chloride Level 109 Carbon Dioxide Level 24.0 Anion Gap 8 Estimat Glomerular Filtration Rate 60 Kirby Oneill MD PhD May 14, 2017 22:03
[2017-05-15] VITALS (14 sets, daily range): BP systolic 156–183; BP diastolic 69–79; PULSE 41–65; RESP 14–28; TEMP 97.5–99.1; O2SAT 97–100
[2017-05-15] MEDS: SODIUM CHLOR 0.9% 1000 ML INJ 1,000 ML IV SCH (02:04)
[2017-05-15] MEDS: CHLORHEXIDINE GLUCONATE 2 % 1 PACK (2 CLOTHS) TOP SCH ×2 (04:00→21:13)
[2017-05-15] MEDS: FAMOTIDINE 20 MG/2 ML VIAL IV PUSH SCH ×2 (07:54→21:00)
[2017-05-15] MEDS: SODIUM CHLORIDE 0.9% FLUSH 10 ML FLUSH IV FLUSH SCH ×2 (07:54→21:00)
[2017-05-15] MEDS: DOCUSATE SODIUM 50 MG/SENNA 8.6 MG TAB PO SCH ×2 (07:54→21:00)
[2017-05-15] MEDS: ARTIFICIAL TEARS OPTH SOLN 15 ML BTL EACH EYE SCH ×3 (07:57→16:49)
[2017-05-15] MEDS: ASPIRIN 600 MG SUPP RECTAL SCH (07:57)
--- NOTE | 2017-05-15 14:23 | HHI.HCPN ---
Reason for visit a. To assist with evaluation and management of symptoms including: Encephalopathy, weakness, dysphagia b. To assist medical decision maker(s) with: better understanding of current medical conditions; weighing benefits/burdens of medical treatment options; making medical treatment decisions. Subjective/Interval History Follow up visit for symptom management and clarification of medical treatment goals: Mrs. Collazo is an 86-year-old female status post left MCA stroke. CTA head/ neck revealed Complete occlusion of internal carotid and common carotid on the left along with left proximal MCA occlusion. Patient remains neurologically unchanged. She remains aphasic with a right-sided facial droop; right upper extremity remains flaccid; does not follow commands. Spontaneously moves left upper extremity. Withdraws to left lower extremity. Afebrile. Respirations are unlabored with oxygen saturations in the high 90s on room air. Persistent bradycardia with a heart rate in the 40s. Patient remains unable to follow commands; oral medications are on hold because the patient is unable to trigger swallow. Daughter Luis) is the designated healthcare surrogate decision maker. She has stated her mother would not want ongoing aggressive interventions if it meant she would be dependent for all care ; daughter previously refusing NGT. Provided written advanced directives yesterday 05/14/2017 which indicate the patient would not want artificial nutrition or hydration under the circumstances. Family would like to speak with someone from hospice, likely transfer to hospice care center today or tomorrow. . Advance Directives Advance Directive Specifics Health Care Surrogate(s): Tonya Smith) is the designated healthcare surrogate decision maker. . Documented care wishes: Tonya Smith) is the designated healthcare surrogate decision maker. She has stated her mother would not want ongoing aggressive interventions if it meant she would be dependent for all care; daughter previously refusing NGT. Provided written advanced directives yesterday 05/14/2017 which indicate the patient would not want artificial nutrition or hydration under the circumstances. Family would like to speak with someone from hospice, likely transfer to hospice care center today or tomorrow. . Significant change in goals: Family would like to speak with someone from hospice, likely transfer to hospice care center today or tomorrow. . Objective Vital Signs Date Time Temp Pulse Resp B/P (MAP) Pulse Ox O2 Delivery O2 Flow Rate FiO2 05/15/17 10:00 47 05/15/17 09:22 97 05/15/17 08:00 65 05/15/17 08:00 97.9 65 14 177/79 (111) 100 05/15/17 07:02 97 Room Air 05/15/17 06:00 47 05/15/17 04:00 44 05/15/17 04:00 99.0 43 24 156/69 (98) 97 05/15/17 03:42 97 21 05/15/17 02:00 46 05/15/17 00:00 44 05/15/17 00:00 99.0 48 28 168/77 (107) 97 05/14/17 22:00 46 05/14/17 20:00 99.0 48 28 168/77 (107) 97 05/14/17 20:00 48 05/14/17 20:00 99 Room Air 05/14/17 18:00 47 05/14/17 16:00 64 05/14/17 16:00 98.2 64 26 169/77 (107) 100 Intake & Output 05/15/17 05/15/17 07:00 19:00 Intake Total 1022 ml Output Total 550 ml Balance 472 ml Intake Oral 0 ml IV Total 1022 ml Output Urine Total 550 ml # Bowel Movements 0 . Physical Exam CONSTITUTIONAL/GENERAL: This is a pale elderly female patient in no acute distress TUBES/LINES/DRAINS: PIV SKIN: No wounds seen anteriorly. Skin temperature appropriate. Not diaphoretic. HEAD: Atraumatic. Normocephalic. EYES: Pupils equal and round about 2 mm bilaterally and reactive. No injection or drainage. No scleral icterus ENT: Nose without bleeding or purulent drainage. Mucous membranes moist and pink NECK: Trachea midline. CARDIOVASCULAR: Bradycardic. No JVD. RESPIRATORY/CHEST: Symmetric, unlabored respirations. Clear to auscultation. Breath sounds equal bilaterally. GASTROINTESTINAL: Abdomen soft, non-tender, nondistended. No guarding. Bowel sounds present. GENITOURINARY: Without palpable bladder distension. MUSCULOSKELETAL: Extremities without clubbing, cyanosis, or edema. LYMPHATICS: No palpable cervical or supraclavicular adenopathy. NEUROLOGICAL: Does not follow commands, right sided facial droop, right upper remains flaccid. Aphasic. PSYCHIATRIC: Unable to assess secondary to clinical condition . Diagnostic Tests Laboratory Laboratory Tests Test 05/13/17 02:18 05/14/17 03:49 05/14/17 08:19 White Blood Count 7.3 TH/MM3 (4.0-11.0) 8.7 TH/MM3 (4.0-11.0) Red Blood Count 3.65 MIL/MM3 (4.00-5.30) 4.01 MIL/MM3 (4.00-5.30) Hemoglobin 12.4 GM/DL (11.6-15.3) 13.2 GM/DL (11.6-15.3) Hematocrit 35.5 % (35.0-46.0) 39.0 % (35.0-46.0) Mean Corpuscular Volume 97.3 FL (80.0-100.0) 97.2 FL (80.0-100.0) Mean Corpuscular Hemoglobin 34.0 PG (27.0-34.0) 32.9 PG (27.0-34.0) Mean Corpuscular Hemoglobin Concent 34.9 % (32.0-36.0) 33.8 % (32.0-36.0) Red Cell Distribution Width 12.3 % (11.6-17.2) 12.1 % (11.6-17.2) Platelet Count 160 TH/MM3 (150-450) 145 TH/MM3 (150-450) Mean Platelet Volume 10.9 FL (7.0-11.0) 11.5 FL (7.0-11.0) Neutrophils (%) (Auto) 71.5 % (16.0-70.0) Lymphocytes (%) (Auto) 17.7 % (9.0-44.0) Monocytes (%) (Auto) 9.9 % (0.0-8.0) Eosinophils (%) (Auto) 0.5 % (0.0-4.0) Basophils (%) (Auto) 0.4 % (0.0-2.0) Neutrophils # (Auto) 5.2 TH/MM3 (1.8-7.7) Lymphocytes # (Auto) 1.3 TH/MM3 (1.0-4.8) Monocytes # (Auto) 0.7 TH/MM3 (0-0.9) Eosinophils # (Auto) 0.0 TH/MM3 (0-0.4) Basophils # (Auto) 0.0 TH/MM3 (0-0.2) CBC Comment DIFF FINAL Differential Comment Prothrombin Time 10.7 SEC (9.8-11.6) Prothromb Time International Ratio 1.1 RATIO Blood Urea Nitrogen 16 MG/DL (7-18) 14 MG/DL (7-18) Creatinine 0.90 MG/DL (0.50-1.00) 0.89 MG/DL (0.50-1.00) Random Glucose 85 MG/DL (74-106) 69 MG/DL (74-106) Total Protein 6.0 GM/DL (6.4-8.2) Albumin 2.7 GM/DL (3.4-5.0) Calcium Level 8.4 MG/DL (8.5-10.1) 8.4 MG/DL (8.5-10.1) Phosphorus Level 2.5 MG/DL (2.5-4.9) Magnesium Level 2.1 MG/DL (1.5-2.5) Alkaline Phosphatase 108 U/L (45-117) Aspartate Amino Transf (AST/SGOT) 20 U/L (15-37) Alanine Aminotransferase (ALT/SGPT) 21 U/L (10-53) Total Bilirubin 0.5 MG/DL (0.2-1.0) Sodium Level 144 MEQ/L (136-145) 141 MEQ/L (136-145) Potassium Level 3.7 MEQ/L (3.5-5.1) 3.7 MEQ/L (3.5-5.1) Chloride Level 114 MEQ/L (98-107) 109 MEQ/L (98-107) Carbon Dioxide Level 21.8 MEQ/L (21.0-32.0) 24.0 MEQ/L (21.0-32.0) Anion Gap 8 MEQ/L (5-15) 8 MEQ/L (5-15) Estimat Glomerular Filtration Rate 59 ML/MIN (>89) 60 ML/MIN (>89) . Result Diagram: 05/14/17 0349 05/14/17 0819 Assessment and Plan Disease Oriented Problem List: (1) CVA (cerebral vascular accident) (2) Hypertension (3) Acute kidney injury Symptom Scale: (1) Encephalopathy (2) Weakness Pertinent Non-Medical Issues Psychosocial: Patient was born in [place]. She had 2 sisters and one brother; one sister is still living. The patient attended college where she met her . 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 Together she and her had 3 children (2 daughters and 1 son). One daughter from complications related to a hospitalization/MRSA infection. Her son was killed and a MCA. Bea is her only living child; she lives in [place]. The patient is a snowbird. She spends most of the year living independently in her home in [place] and spends a few months of the year living independently in her [facility] home. Spiritual: Religion heidi Legal: Per [place] statutes, in the absence of written advanced directives healthcare proxy decision-making falls to the patient's only living child. Daughter, Bea, states her mother completed written advanced directives 4 years ago after the of her . She will attempt to have a family member in [place] to locate the documents and fax them to the palliative care team. Ethical issues impacting care: No known ethical issues impacting care. . Important Contacts Bea Cabrera, daughter: [phone] . 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 Neurological status remains unchanged with dysphagia. Daughter refusing NGT for artificial nutrition. She is high risk for ongoing decline; family considering transition to comfort focused care. . Code Status: No Code Plan * NO CODE * Patient is not capacitated to participate and establishment of medical treatment goals; she will likely not regain capacity. Her daughter, Nel, is the designated health care surrogate decision maker * Discussed patient with bedside nurse, window caser (Sindy) and Dr. Pride * Hospice consult pending-spoke with Apple at hospice intake. * Patient remains unable to follow commands; oral medications are on hold because the patient is unable to trigger swallow. Daughter (Nel) is the designated healthcare surrogate decision maker. She has stated her mother would not want ongoing aggressive interventions if it meant she would be dependent for all care; daughter previously refusing NGT. Provided written advanced directives yesterday 05/14/2017 which indicate the patient would not want artificial nutrition or hydration under the circumstances. Family would like to speak with someone from hospice, likely transfer to hospice care center today or tomorrow. * Symptom management-encephalopathy: Patient admitted with new onset right- sided weakness and difficulty speaking. NIH scale of 30. The CT of the head done in the emergency department showed possible left occipital cortical bleed and thus the patient was not a candidate for TPA administration. 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 Worsening neurological status today. Patient remains aphasic with right facial droop, right upper extremity remains flaccid. * Symptom management- dysphagia: Patient remains unable to follow commands; oral medications are on hold because the patient is unable to trigger swallow. Daughter refusing NGT; advanced directives provided yesterday 05/14/2017 indicate the patient would not want artificial nutrition or hydration. * Palliative care will continue to follow this patient throughout her hospitalization to establish trust, assist with symptom management and clarification of medical treatment goals. . Attestation To help prompt me to consider important information that might be impacting today's encounter and assessment, information from prior notes written by myself or my colleagues may have been "brought forward" into today's note. My signature on this note, however, is an attestation that I personally performed the exam, history, and/or decision-making noted today, and, unless otherwise indicated, the interactions with patient, family, and staff as well as the review of records all occurred today. I also attest that the listed assessment and stated plan reflect my best clinical judgment today based on the combination of historical information, prior notes, and today's exam/ interactions. When time spent is documented, it refers only to time spent today by the signer, or if indicated, combined time spent today by collaborating physician/nurse practitioner. . Elvira Kirk May 15, 2017 14:23
--- NOTE | 2017-05-15 19:01 | HHI.CCPN ---
Subjective Remarks/Hospital Course Note 05/12 - not saved? 86-year-old female with no significant past medical history presents after she was eating dinner with her family at 7:30 PM when she slumped over on the table and had onset of right sided weakness and difficulty speaking. The family immediately called EMS. With EMS the patient had a normal blood sugar but is unable to provide any further history. The CT of the head done in the emergency department showed possible left occipital cortical bleed and thus the patient was not a candidate for TPA administration. 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 05/13: Tmax 102.4. Currently afebrile. Bradycardic and appears mottled lower extremities. Worsening neurological status. Withdraws to left lower extremity only. 05/14: Afebrile. Neurologically unchanged. GCS around 8. Discussed with daughter patient of NG tube for feeding. Declines at the present time. Subjective 05/15: Afebrile. Hospice consult day asked her healthcare proxy desires comfort care measures at this time. No feeding tube. Aphasia. Moves left upper and lower extremity spontaneously. Right hemiparesis. Objective Vital Signs Date Time Temp Pulse Resp B/P (MAP) Pulse Ox O2 Delivery O2 Flow Rate FiO2 05/15/17 18:00 43 05/15/17 16:00 97.8 22 183/78 (113) 100 05/15/17 07:02 Room Air 05/15/17 03:42 21 05/11/17 20:20 2.00 Intake and Output 05/15/17 05/15/17 05/16/17 08:00 16:00 00:00 Intake Total 1022 ml 0 ml Output Total 550 ml 600 ml Balance 472 ml -600 ml Result Diagram: 05/14/17 0349 05/14/17 0819 Imaging Last Impressions Brain MRI 05/12/17 0000 Signed Impressions: Service Date/Time: Friday, May 12, 2017 11:37 - CONCLUSION: Extensive restricted diffusion is noted throughout the left frontal parietal lobe and left basal ganglia consistent with acute infarct. 4 mm of subfalcine herniation to the right are noted. Flow void is not identified within the left internal carotid artery indicating thrombosis. Clint Snider MD Neck CTA 05/11/17 0000 Signed Impressions: Service Date/Time: Thursday, May 11, 2017 21:01 - CONCLUSION: 1. Occluded left common and internal carotid arteries. 2. Patent right carotid system without significant stenosis. 3. Patent vertebral arteries. Adiel Chandler MD Head CTA 05/11/17 0000 Signed Impressions: Service Date/Time: Thursday, May 11, 2017 21:01 - CONCLUSION: 1. Occluded left internal carotid artery and proximal left middle cervical artery 2. 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 3. Intact right cerebral and vertebral basilar circulation. Adiel Chandler MD Head CT 05/11/17 0000 Signed Impressions: Service Date/Time: Thursday, May 11, 2017 20:15 - CONCLUSION: 1. Possible small cortical hemorrhage along the left occipital lobe 2. No other evidence of acute infarct or hemorrhage. Adiel Chandler MD Objective Remarks GENERAL: 86-year-old male currently critically ill SKIN: Focused skin assessment cool and dry with mottling at the knees HEAD: Atraumatic. Normocephalic. EYES: Pupils equal and round about 2 mm bilaterally and reactive. No injection or drainage. ENT: Moist mucous membranes NECK: Trachea midline. CARDIOVASCULAR: Bradycardic, RR. S1, S2 no S4. RESPIRATORY: Clear to auscultation. Breath sounds equal bilaterally. GASTROINTESTINAL: Abdomen soft, non-tender, nondistended. MUSCULOSKELETAL: No obvious deformities. NEUROLOGICAL: Does not follow commands, right sided facial droop, right upper extremity flaccid. And right lower extremity withdraws to pain, decerebrate. Currently aphasic. Spontaneously moves left upper extremity. Withdraws to left lower extremity. A/P Assessment and Plan Neuro/Psych: Left MCA CVA - right-sided weakness CTA head/neck revealed complete occlusion of internal carotid and common carotid on the left along with left proximal MCA occlusion - No intervention available - Aspirin 600 mg [place] daily - Atorvastatin 40 mg daily - Neurology consult Dr. Oneill - Palliative care consultation. Currently recommends hospice - Physical therapy eval and treat as tolerated - 2-D echo - The left ventricular systolic function is low normal with an estimated ejection fraction in the range of 50-55%. Normal left ventricular size. [id number] mitral valve regurgitation. There is mild tricuspid valve regurgitation. The estimated pulmonary arterial pressure is 38.9 mmHg. Ofirmev 1 g IV every 6 hours when necessary fever MRI brain revealed left frontal/parietal and basal ganglia CVA/infarction with 4 mm subfalcine herniation shift to the right. CV: Hypertension - Continue permissive hypertension - 2-D echo results as above Resp: Nasal cannula to maintain saturations greater than equal to 92% Incentive spirometry while awake GI: Patient is currently nothing by mouth Famotidine for GI prophylaxis Docusate sodium/senna for bowel regimen : Cazares catheter Endo: Sliding scale insulin to maintain euglycemia if indicated Renal/FEN: Acute kidney injury - Gentle IV hydration with normal saline at 84 cc an hour - Monitor electrolytes and replace per ICU protocol Heme: CBC within normal limits ID: Monitor for infection MSK: PT/OT evaluate and treat Access - Utilize peripheral IV. Central line if indicated Prophylaxis - GI - famotidine - DVT - SCD/holding pharmacological prophylaxis Level II follow-up Sriram Pride MD May 15, 2017 19:01
[2017-05-15] MEDS: ATORVASTATIN 40 MG TAB PO SCH (21:00)
[2017-05-16] VITALS: BP 152/68; PULSE 48; RESP 30; TEMP 99.2; O2SAT 100
[2017-05-16] MEDS: SODIUM CHLOR 0.9% 1000 ML INJ 1,000 ML IV SCH (00:33)
[2017-05-16 04:00] VITALS: BP 145/75; PULSE 45; RESP 25; TEMP 98.6; O2SAT 94
[2017-05-16 08:43] VITALS: O2SAT 96
[2017-05-16 09:00] VITALS: BP 160/72; PULSE 42; RESP 20; TEMP 98.4; O2SAT 99
[2017-05-16] MEDS: DOCUSATE SODIUM 50 MG/SENNA 8.6 MG TAB PO SCH (09:00)
[2017-05-16] MEDS: SODIUM CHLORIDE 0.9% FLUSH 10 ML FLUSH IV FLUSH SCH (09:00)
[2017-05-16] MEDS: ASPIRIN 600 MG SUPP RECTAL SCH (09:00)
[2017-05-16] MEDS: ARTIFICIAL TEARS OPTH SOLN 15 ML BTL EACH EYE SCH (09:00)
[2017-05-16] MEDS: FAMOTIDINE 20 MG/2 ML VIAL IV PUSH SCH (09:00)
--- NOTE | 2017-05-16 12:37 | HHI.DS ---
Discharge Summary Admission Date May 11, 2017 at 21:54 Admitting Diagnosis stroke (1) CVA (cerebral vascular accident) ICD Code: I63.9 - Cerebral infarction, unspecified Diagnosis: Principal Status: Acute (2) Hypertension ICD Code: I10 - Essential (primary) hypertension Diagnosis: Principal Status: Chronic Procedures Consultation to neurology - Dr. Oneill Brief History 86-year-old female with no significant past medical history presents after she was eating dinner with her family at 7:30 PM when she slumped over on the table and had onset of right sided weakness and difficulty speaking. The family immediately called EMS. With EMS the patient had a normal blood sugar but is unable to provide any further history. The CT of the head done in the emergency department showed possible left occipital cortical bleed and thus the patient was not a candidate for TPA administration. 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 CBC/BMP: 05/14/17 0349 05/14/17 0819 Significant Findings Laboratory Tests Test 05/14/17 03:49 05/14/17 08:19 Platelet Count 145 TH/MM3 (150-450) Mean Platelet Volume 11.5 FL (7.0-11.0) Random Glucose 69 MG/DL (74-106) Calcium Level 8.4 MG/DL (8.5-10.1) Chloride Level 109 MEQ/L (98-107) Estimat Glomerular Filtration Rate 60 ML/MIN (>89) Imaging Last Impressions Brain MRI 05/12/17 0000 Signed Impressions: Service Date/Time: Friday, May 12, 2017 11:37 - CONCLUSION: Extensive restricted diffusion is noted throughout the left frontal parietal lobe and left basal ganglia consistent with acute infarct. 4 mm of subfalcine herniation to the right are noted. Flow void is not identified within the left internal carotid artery indicating thrombosis. Clint Snider MD Neck CTA 05/11/17 0000 Signed Impressions: Service Date/Time: Thursday, May 11, 2017 21:01 - CONCLUSION: 1. Occluded left common and internal carotid arteries. 2. Patent right carotid system without significant stenosis. 3. Patent vertebral arteries. Adiel Chandler MD Head CTA 05/11/17 0000 Signed Impressions: Service Date/Time: Thursday, May 11, 2017 21:01 - CONCLUSION: 1. Occluded left internal carotid artery and proximal left middle cervical artery 2. 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 3. Intact right cerebral and vertebral basilar circulation. Adiel Chandler MD Head CT 05/11/17 0000 Signed Impressions: Service Date/Time: Thursday, May 11, 2017 20:15 - CONCLUSION: 1. Possible small cortical hemorrhage along the left occipital lobe 2. No other evidence of acute infarct or hemorrhage. Adiel Chandler MD PE at Discharge GENERAL: 86-year-old female currently critically ill SKIN: Focused skin assessment cool and dry with mottling at the knees HEAD: Atraumatic. Normocephalic. EYES: Pupils equal and round about 2 mm bilaterally and reactive. No injection or drainage. ENT: Moist mucous membranes NECK: Trachea midline. CARDIOVASCULAR: Bradycardic, RR. S1, S2 no S4. RESPIRATORY: Clear to auscultation. Breath sounds equal bilaterally. GASTROINTESTINAL: Abdomen soft, non-tender, nondistended. MUSCULOSKELETAL: No obvious deformities. NEUROLOGICAL: Does not follow commands, right sided facial droop, right upper extremity flaccid. And right lower extremity withdraws to pain, decerebrate. Currently aphasic. Spontaneously moves left upper extremity. Withdraws to left lower extremity. Transfer Summary Neuro/Psych: Left MCA CVA - right-sided weakness CTA head/neck revealed complete occlusion of internal carotid and common carotid on the left along with left proximal MCA occlusion - No intervention available - Aspirin 600 mg [place] daily - Atorvastatin 40 mg daily - Neurology consult Dr. Oneill - Palliative care consultation. Currently recommends hospice - Physical therapy eval and treat as tolerated - 2-D echo - The left ventricular systolic function is low normal with an estimated ejection fraction in the range of 50-55%. Normal left ventricular size. [id number] mitral valve regurgitation. There is mild tricuspid valve regurgitation. The estimated pulmonary arterial pressure is 38.9 mmHg. Ofirmev 1 g IV every 6 hours when necessary fever MRI brain revealed left frontal/parietal and basal ganglia CVA/infarction with 4 mm subfalcine herniation shift to the right. CV: Hypertension - Continue permissive hypertension - 2-D echo results as above Resp: Nasal cannula to maintain saturations greater than equal to 92% Incentive spirometry while awake GI: Patient is currently nothing by mouth Famotidine for GI prophylaxis Docusate sodium/senna for bowel regimen : Cazares catheter Endo: Sliding scale insulin to maintain euglycemia if indicated Renal/FEN: Acute kidney injury - Gentle IV hydration with normal saline at 84 cc an hour - Monitor electrolytes and replace per ICU protocol Heme: CBC within normal limits ID: Monitor for infection MSK: PT/OT evaluate and treat Access - Utilize peripheral IV. Central line if indicated Prophylaxis - GI - famotidine - DVT - SCD/holding pharmacological prophylaxis Critical care discharge less than 35 minutes Hospital Course Note 05/12 - not saved? 86-year-old female with no significant past medical history presents after she was eating dinner with her family at 7:30 PM when she slumped over on the table and had onset of right sided weakness and difficulty speaking. The family immediately called EMS. With EMS the patient had a normal blood sugar but is unable to provide any further history. The CT of the head done in the emergency department showed possible left occipital cortical bleed and thus the patient was not a candidate for TPA administration. 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 05/13: Tmax 102.4. Currently afebrile. Bradycardic and appears mottled lower extremities. Worsening neurological status. Withdraws to left lower extremity only. 05/14: Afebrile. Neurologically unchanged. GCS around 8. Discussed with daughter patient of NG tube for feeding. Declines at the present time. 05/15: Afebrile. Hospice consult day asked her healthcare proxy desires comfort care measures at this time. No feeding tube. Aphasia. Moves left upper and lower extremity spontaneously. Right hemiparesis. 05/16: Plan for hospice at [facility] today. Pt Condition on Discharge: Deteriorating Discharge Disposition: Hospice/Med Facility Discharge Instructions DIET: Follow Instructions for: Nothing By Mouth Activities you can perform: Continue Bedrest Sriram Pride MD May 16, 2017 12:37
--- NOTE | 2017-05-16 14:57 | HHI.HCPN ---
Reason for visit a. To assist with evaluation and management of symptoms including: Encephalopathy, weakness, dysphagia b. To assist medical decision maker(s) with: better understanding of current medical conditions; weighing benefits/burdens of medical treatment options; making medical treatment decisions. Subjective/Interval History Follow up visit this morning for symptom management and clarification of medical treatment goals: Mrs. Collazo is an 86-year-old female status post left MCA stroke. CTA head/ neck revealed Complete occlusion of internal carotid and common carotid on the left along with left proximal MCA occlusion. Patient remains neurologically unchanged. She remains aphasic with a right-sided facial droop; right upper extremity remains flaccid; does not follow commands. No recent lab work or imaging available. Afebrile. Respirations are unlabored with oxygen saturations in the high mid 90s to 100% on room air. Persistent bradycardia with a heart rate in the 40s. Patient remains unable to follow commands; oral medications are on hold because the patient is unable to trigger swallow. Daughter Luis) is the designated healthcare surrogate decision maker. She has stated her mother would not want ongoing aggressive interventions if it meant she would be dependent for all care ; daughter previously refusing NGT. Provided written advanced directives on 05/14 which indicate the patient would not want artificial nutrition or hydration under the circumstances. Hospice was consulted and a decision was made to incision to comfort focused care; patient will be transferred to the [facility] today for symptom management and end-of-life care. . Family/friend interactions Family appreciative of palliative care support. They have decided to transition to comfort focused care, and the patient will be transferred to the [facility] her today. . Advance Directives Advance Directive Specifics Health Care Surrogate(s): Tonya Smith) is the designated healthcare surrogate decision maker. . Documented care wishes: Tonya Smith) is the designated healthcare surrogate decision maker. She has stated her mother would not want ongoing aggressive interventions if it meant she would be dependent for all care; daughter previously refusing NGT. Provided written advanced directives yesterday 05/14/2017 which indicate the patient would not want artificial nutrition or hydration under the circumstances. Family would like to speak with someone from hospice, likely transfer to hospice care center today or tomorrow. . Significant change in goals: Transition to hospice; patient going to [facility] later today for symptom management and end-of-life care. . Objective Vital Signs Date Time Temp Pulse Resp B/P (MAP) Pulse Ox O2 Delivery O2 Flow Rate FiO2 05/16/17 09:00 98.4 42 20 160/72 (101) 99 05/16/17 08:43 96 21 05/16/17 07:00 100 Room Air 05/16/17 04:00 98.6 45 25 145/75 (98) 94 05/16/17 00:00 99.2 48 30 152/68 (96) 100 05/15/17 20:00 99.1 59 21 157/77 (103) 99 05/15/17 20:00 100 Room Air 05/15/17 19:52 98 05/15/17 18:00 43 05/15/17 16:00 56 05/15/17 16:00 97.8 56 22 183/78 (113) 100 Intake & Output 05/16/17 05/16/17 07:00 19:00 Intake Total 0 ml Output Total 801 ml Balance -801 ml Intake Oral 0 ml Output Urine Total 800 ml Stool Total 1 ml . Physical Exam CONSTITUTIONAL/GENERAL: This is a pale elderly female patient in no acute distress TUBES/LINES/DRAINS: PIV SKIN: Generalized pallor No wounds seen anteriorly. Skin temperature appropriate. Not diaphoretic. HEAD: Atraumatic. Normocephalic. EYES: Pupils equal, round and reactive. No injection or drainage. No scleral icterus ENT: Nose without bleeding or purulent drainage. Mucous membranes moist and pink NECK: Trachea midline. CARDIOVASCULAR: Bradycardic. No JVD. RESPIRATORY/CHEST: Symmetric, unlabored respirations. Clear to auscultation. Breath sounds equal bilaterally. GASTROINTESTINAL: Abdomen soft, non-tender, nondistended. No guarding. Bowel sounds present. GENITOURINARY: Without palpable bladder distension. MUSCULOSKELETAL: Extremities without clubbing, cyanosis, or edema. LYMPHATICS: No palpable cervical or supraclavicular adenopathy. NEUROLOGICAL: Does not follow commands, right sided facial droop, right upper remains flaccid. Aphasic. PSYCHIATRIC: Unable to assess secondary to clinical condition . Diagnostic Tests Laboratory Laboratory Tests Test 05/14/17 03:49 05/14/17 08:19 White Blood Count 8.7 TH/MM3 (4.0-11.0) Red Blood Count 4.01 MIL/MM3 (4.00-5.30) Hemoglobin 13.2 GM/DL (11.6-15.3) Hematocrit 39.0 % (35.0-46.0) Mean Corpuscular Volume 97.2 FL (80.0-100.0) Mean Corpuscular Hemoglobin 32.9 PG (27.0-34.0) Mean Corpuscular Hemoglobin Concent 33.8 % (32.0-36.0) Red Cell Distribution Width 12.1 % (11.6-17.2) Platelet Count 145 TH/MM3 (150-450) Mean Platelet Volume 11.5 FL (7.0-11.0) Blood Urea Nitrogen 14 MG/DL (7-18) Creatinine 0.89 MG/DL (0.50-1.00) Random Glucose 69 MG/DL (74-106) Calcium Level 8.4 MG/DL (8.5-10.1) Sodium Level 141 MEQ/L (136-145) Potassium Level 3.7 MEQ/L (3.5-5.1) Chloride Level 109 MEQ/L (98-107) Carbon Dioxide Level 24.0 MEQ/L (21.0-32.0) Anion Gap 8 MEQ/L (5-15) Estimat Glomerular Filtration Rate 60 ML/MIN (>89) . Result Diagram: 05/14/17 0349 05/14/17 0819 Assessment and Plan Disease Oriented Problem List: (1) CVA (cerebral vascular accident) (2) Hypertension (3) Acute kidney injury Symptom Scale: (1) Encephalopathy (2) Weakness Pertinent Non-Medical Issues Psychosocial: Patient was born in [place]. She had 2 sisters and one brother; one sister is still living. The patient attended college where she met her . 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 Together she and her had 3 children (2 daughters and 1 son). One daughter from complications related to a hospitalization/MRSA infection. Her son was killed and a MCA. Bea is her only living child; she lives in [place]. The patient is a snowbird. She spends most of the year living independently in her home in [place] and spends a few months of the year living independently in [place]. Spiritual: Jain heidi Legal: Per [place] statutes, in the absence of written advanced directives healthcare proxy decision-making falls to the patient's only living child. Daughter, Bea, states her mother completed written advanced directives 4 years ago after the of her . She will attempt to have a family member in [place] to locate the documents and fax them to the palliative care team. Ethical issues impacting care: No known ethical issues impacting care. . Important Contacts Bea Cabrera, daughter: [phone] . 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 Neurological status remains unchanged with dysphagia. Daughter refusing NGT for artificial nutrition. She is high risk for ongoing decline; family considering transition to comfort focused care. . Code Status: No Code Plan * NO CODE * Patient is not capacitated to participate and establishment of medical treatment goals; she will likely not regain capacity. Her daughter, Nel, is the designated health care surrogate decision maker * Hospice was consulted and a decision was made to incision to comfort focused care; patient will be transferred to the [facility] today for symptom management and end-of-life care. * Symptom management-encephalopathy: Patient admitted with new onset right- sided weakness and difficulty speaking. NIH scale of 30. The CT of the head done in the emergency department showed possible left occipital cortical bleed and thus the patient was not a candidate for TPA administration. 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 Worsening neurological status today. Patient remains aphasic with right facial droop, right upper extremity remains flaccid. * Symptom management- dysphagia: Patient remains unable to follow commands; oral medications are on hold because the patient is unable to trigger swallow. Daughter refusing NGT; advanced directives provided yesterday 05/14/2017 indicate the patient would not want artificial nutrition or hydration. * Palliative care will continue to follow this patient throughout her hospitalization to establish trust, assist with symptom management and clarification of medical treatment goals. . Attestation To help prompt me to consider important information that might be impacting today's encounter and assessment, information from prior notes written by myself or my colleagues may have been "brought forward" into today's note. My signature on this note, however, is an attestation that I personally performed the exam, history, and/or decision-making noted today, and, unless otherwise indicated, the interactions with patient, family, and staff as well as the review of records all occurred today. I also attest that the listed assessment and stated plan reflect my best clinical judgment today based on the combination of historical information, prior notes, and today's exam/ interactions. When time spent is documented, it refers only to time spent today by the signer, or if indicated, combined time spent today by collaborating physician/nurse practitioner. . Elvira Kirk May 16, 2017 14:57
== END 2017-05-16 13:08 | disposition hospice, inpatient (51) | DRG 64 ==
LOC: PHED 20:10 → PHEDA 21:54 → N03A 05-12 00:31
PROVIDERS: ADMIT Internal Medicine Critical Care Medicine; ATTEND Internal Medicine Critical Care Medicine
DX: I63.512 Cerebral infarction due to unspecified occlusion or stenosis of left middle cerebral artery (principal); I61.1 Nontraumatic intracerebral hemorrhage in hemisphere, cortical; G93.5 Compression of brain; N17.9 Acute kidney failure, unspecified; G93.40 Encephalopathy, unspecified; R13.10 Dysphagia, unspecified; G81.91 Hemiplegia, unspecified affecting right dominant side; I07.1 Rheumatic tricuspid insufficiency; R47.01 Aphasia; I65.22 Occlusion and stenosis of left carotid artery; Z51.5 Encounter for palliative care; Z87.891 Personal history of nicotine dependence; I10 Essential (primary) hypertension; G51.0 Bell's palsy; R00.1 Bradycardia, unspecified
CPT/HCPCS: 51702; 70450; 70496; 70498; 70553; 80048; 80053; 80307; 81001; 82550; 83735; 84100; 84484; 84702; 85025; 85027; 85384; 85610; 85730; 86850; 86900; 86901; 87641; 93005; 93306; A9579; J0131; J2270; J7030; Q9967